=== PATIENT | male | born 1975 | race Caucasian/White ===

== ENCOUNTER 2020-01-18 14:47 | Inpatient (IN) | payer MEDICAID, SELFPAY ==
[2020-01-18] VITALS (11 sets, daily range): BP systolic 160–181; BP diastolic 85–118; PULSE 98–135; RESP 16–24; TEMP 37.1–37.3; O2SAT 91–96; BMI 21.7
--- NOTE | 2020-01-18 15:32 | ED_ITS ---
Documented by User: TREMAINE Crockett 01/19/20 17:45 HPI - Extremity Problem General: Chief complaint: Extremity Problem,Nontraumatic Stated complaint: legs stopped working Time Seen by Provider: 01/18/20 15:29 History of Present Illness: HPI Narrative: Patient is a 44-year-old male comes to the ED with alcohol withdrawal symptoms. Patient states that he typically drinks 30 pack of beers a day. He says in the past couple days he is trying to cut back and has been averaging about 7-10 beers a day. He is now having symptoms of withdrawal and is having tremors in his right and then he has leg pains. He also has been feeling nauseous and has vomited over the past couple days multiple times. Patient says before he came in today he drank about 4 beers. Associated symptoms: Deny chest pain, fever(s) or rash Review of Systems Const: Denies: fever(s), chills or fatigue Eyes: Denies: change in vision or eye discomfort ENMT: Denies: throat pain, odynophagia, nasal discharge or nasal congestion Card: Denies: chest pain, palpitations, edema, swelling of feet/ankles, dyspnea on exertion or orthopnea Resp: Denies: dyspnea, productive cough or non-productive cough GI: Reports: nausea and vomiting; Denies: abdominal pain, diarrhea, constipation or hematochezia : Denies: flank pain, difficulty urinating, dysuria or hematuria Musc: Reports: extremity pain (R and L lower extremities); Denies: neck pain, back pain or extremity swelling Skin/Breast: Denies: rash or new lesions Neuro: Reports: involuntary movements (Right arm tremors); Denies: headache(s), numbness in extremities or weakness in extremities Psych: Reports: other (Alcohol withdrawals.) PFS ED PFSH: Medical History Alcohol abuse Smoker Surgical History (Updated 01/18/20 @ 21:41 by Kandace Corona MD) H/O hand surgery Family History (Updated 01/18/20 @ 21:41 by Kadnace Corona MD) Denies family history of Diabetes Lung disease Hypertension Social History (Updated 01/18/20 @ 21:42 by Kandace Corona MD) Smoking and tobacco status: heavy tobacco smoker cigarettes [ Other cigarette details: 2 packs/day for last 30 years ] Alcohol intake: current Alcohol type: beer Household members: family Housing: House Physical Exam Const: COMMON NORMALS: patient oriented x3 HENMT: COMMON NORMALS: normocephalic HEAD & SCALP: normocephalic MOUTH: Normal oral and palatal mucosa present THROAT: posterior oropharynx normal and uvula midline Eye: COMMON NORMALS: Equal, round and reactive pupils present CONJUNCTIVA: Yes conjunctival abnormal positive bilateral conjunctival icterus PUPIL: Yes Equal, round and reactive pupils present Neck/C-Spine: COMMON NORMALS: supple GENERAL: Yes normal visual inspection Resp: COMMON NORMALS: normal respiratory effort, No retractions, No use of accessory muscles and clear to auscultation bilaterally EFFORT & INSPECTION: Yes able to speak in complete sentences AUSCULTATION: clear to auscultation bilaterally Cardio: COMMON NORMALS: regular rhythm, S1 normal heart sound present, S2 normal heart sound present, No gallops present (Cardio), No clicks present (Cardio), No murmurs present (Cardio) and Peripheral pulses 2+ throughout RATE: tachycardic RHYTHM: regular rhythm HEART SOUNDS: S1 normal heart sound present and S2 normal heart sound present PERIPHERAL PULSES: Peripheral pulses 2+ throughout GI: COMMON NORMALS: Normal to inspection, nondistended, normoactive bowel sounds present, Soft to palpation, non-tender and no masses PALPATION: Yes Soft to palpation : COMMON NORMALS: Yes no CVA tenderness BLADDER/KIDNEY EXAM: Yes no CVA tenderness Back/Pelvis: COMMON NORMALS: no CVA tenderness Extremity: COMMON NORMALS: no pedal edema GENERAL: Yes normal exam except as noted RIGHT UPPER EXTREMITY: Yes lower arm Right lower arm: Yes inspection (Patient has a tremor in right arm causing shaking of right hand.) Neuro: COMMON NORMALS: patient oriented x3 and moves all extremities Skin: COMMON NORMALS: no rashes or lesions noted GENERAL SKIN EXAM: no rashes or lesions noted and dry skin Course Vital Signs: Vital signs: Vital Signs Temperature 98.2 F 01/19/20 08:45 Pulse Rate 66 01/19/20 16:00 Respiratory Rate 18 01/19/20 16:00 Blood Pressure 139/96 01/19/20 16:00 Pulse Oximetry 94 01/19/20 16:00 MDM - Extremity (Nontraumatic) Lab Data: Attestation: I reviewed the patient's lab results. Labs: Lab Results 01/18/20 01/18/20 01/18/20 Range/Units 15:38 15:38 15:38 WBC 9.5 (4.0-10.0) 10^3/ uL RBC 4.22 (4.1-5.3) 10^6/u L Hgb 13.5 (11.7-16.6) g/dL Hct 40.4 L (42.0-52.0) % MCV 95.7 H (80-94) fL MCH 32.0 (28.0-34.0) pg MCHC 33.4 (30.0-36.0) g/dL RDW 12.9 (12.1-15.1) % Plt Count 40 L (130-400) 10^3/c mm MPV 10.0 (7.4-10.4) fL Neut % (Auto) 81.2 % Lymph % (Auto) 10.7 % [place] % (Auto) 7.1 % Eos % (Auto) 0.0 % Baso % (Auto) 0.4 % Neut # (Auto) 7.7 (1.8-7.7) 10^3/u L Lymph # (Auto) 1.0 (0.8-4.8) 10^3/u L [place] # (Auto) 0.7 (0.2-0.9) 10^3/u L Eos # (Auto) 0.0 (0.0-0.8) 10^3/u L Baso # (Auto) 0.0 (0.0-0.1) 10^3/u L Nucleated RBC % (a uto) 0 % Nucleated RBCs # 0.0 /100WBC Sodium 130 L (136-145) mmol/L Potassium 3.7 (3.5-5.1) mmol/L Chloride 88 L (98-107) mmol/L Carbon Dioxide 20 L (22-29) mmol/L Anion Gap 25.7 H (5-19) BUN 4 L (6-20) mg/dL Creatinine 0.5 L (0.7-1.2) mg/dL GFR Calculation 180.6 H (90-130) mL/min Glucose 99 (65-115) mg/dL Calculated Osmolal ity 266 L (285-295) mOsm/k g Calcium 9.0 (8.5-10.5) mg/dL Total Bilirubin 0.9 (0.15-1.2) mg/dL AST 69 H (0-40) U/L ALT 49 H (0-41) U/L Alkaline Phosphata se 74 (40-130) IU/L Total Protein 7.1 (6.6-8.7) g/dL Albumin 4.0 (3.5-5.2) g/dL Globulin 3.1 (1.3-4.6) g/dL Ethyl Alcohol 83 H (0-10) mg/dL Discharge Plan Discharge Admit Provider: Kandace Corona Discharge Date/Time: 01/18/20 21:52 Coding Level of Care Code ED Shipping Point Inspector for [facility] Fwd Exam Comprehensive Documented by User: OANH Ellison 01/18/20 18:34 HPI - Extremity Problem General: Chief complaint: Extremity Problem,Nontraumatic Stated complaint: legs stopped working Time Seen by Provider: 01/18/20 15:29 PFSH ED PFSH: Medical History Alcohol abuse Smoker Surgical History (Updated 01/18/20 @ 21:41 by Kandace Corona MD) H/O hand surgery Family History (Updated 01/18/20 @ 21:41 by Kandace Corona MD) Denies family history of Diabetes Lung disease Hypertension Social History (Updated 01/18/20 @ 21:42 by Kandace Corona MD) Smoking and tobacco status: heavy tobacco smoker cigarettes [ Other cigarette details: 2 packs/day for last 30 years ] Alcohol intake: current Alcohol type: beer Household members: family Housing: House Course Vital Signs: Vital signs: Vital Signs Temperature 98.2 F 01/19/20 08:45 Pulse Rate 66 01/19/20 16:00 Respiratory Rate 18 01/19/20 16:00 Blood Pressure 139/96 01/19/20 16:00 Pulse Oximetry 94 01/19/20 16:00 MDM - Extremity (Nontraumatic) MDM Narrative: Medical decision making narrative: Discussed case with Dr. Chino at 1830 ordered more Ativan fluids evaluate patient for possible admission ICU Lab Data: Labs: Lab Results 01/18/20 01/18/20 01/18/20 Range/Units 15:38 15:38 15:38 WBC 9.5 (4.0-10.0) 10^3/ uL RBC 4.22 (4.1-5.3) 10^6/u L Hgb 13.5 (11.7-16.6) g/dL Hct 40.4 L (42.0-52.0) % MCV 95.7 H (80-94) fL MCH 32.0 (28.0-34.0) pg MCHC 33.4 (30.0-36.0) g/dL RDW 12.9 (12.1-15.1) % Plt Count 40 L (130-400) 10^3/c mm MPV 10.0 (7.4-10.4) fL Neut % (Auto) 81.2 % Lymph % (Auto) 10.7 % [place] % (Auto) 7.1 % Eos % (Auto) 0.0 % Baso % (Auto) 0.4 % Neut # (Auto) 7.7 (1.8-7.7) 10^3/u L Lymph # (Auto) 1.0 (0.8-4.8) 10^3/u L [place] # (Auto) 0.7 (0.2-0.9) 10^3/u L Eos # (Auto) 0.0 (0.0-0.8) 10^3/u L Baso # (Auto) 0.0 (0.0-0.1) 10^3/u L Nucleated RBC % (a uto) 0 % Nucleated RBCs # 0.0 /100WBC Sodium 130 L (136-145) mmol/L Potassium 3.7 (3.5-5.1) mmol/L Chloride 88 L (98-107) mmol/L Carbon Dioxide 20 L (22-29) mmol/L Anion Gap 25.7 H (5-19) BUN 4 L (6-20) mg/dL Creatinine 0.5 L (0.7-1.2) mg/dL GFR Calculation 180.6 H (90-130) mL/min Glucose 99 (65-115) mg/dL Calculated Osmolal ity 266 L (285-295) mOsm/k g Calcium 9.0 (8.5-10.5) mg/dL Total Bilirubin 0.9 (0.15-1.2) mg/dL AST 69 H (0-40) U/L ALT 49 H (0-41) U/L Alkaline Phosphata se 74 (40-130) IU/L Total Protein 7.1 (6.6-8.7) g/dL Albumin 4.0 (3.5-5.2) g/dL Globulin 3.1 (1.3-4.6) g/dL Ethyl Alcohol 83 H (0-10) mg/dL Discharge Plan Discharge Admit Provider: Kandace Corona Discharge Date/Time: 01/18/20 21:52 Coding Level of Care Code ED Shipping Point Inspector for g Fwd Exam Comprehensive
[2020-01-18 15:45] LABS: Basophils % 0.4 %; Hematocrit 40.4 % (42.0-52.0); Hemoglobin 13.5 g/dL (11.7-16.6); Lymphocytes % 10.7 %; Mean Corpuscular HGB Conc 33.4 g/dL (30.0-36.0); Mean Corpuscular Volume 95.7 fL (80-94); Monocytes # 0.7 10^3/uL (0.2-0.9); Monocytes % 7.1 %; Neutrophils # 7.7 10^3/uL (1.8-7.7); Neutrophils % 81.2 %; Nucleated Red Blood Cells % 0 %; Platelet Count 40 10^3/cmm (130-400); Red Blood Count 4.22 10^6/uL (4.1-5.3); Red Cell Distribution Width 12.9 % (12.1-15.1); White Blood Count 9.5 10^3/uL (4.0-10.0)
[2020-01-18 16:04] LABS: Alanine Aminotransferase 49 U/L (0-41); Alkaline Phosphatase 74 IU/L (40-130); Anion Gap 25.7 (5-19); Aspartate Amino Transferase 69 U/L (0-40); Blood Urea Nitrogen 4 mg/dL (6-20); Carbon Dioxide 20 mmol/L (22-29); Chloride 88 mmol/L (98-107); Globulin 3.1 g/dL (1.3-4.6); Glomerular Filtration Rate 180.6 mL/min (90-130); Glucose 99 mg/dL (65-115); Osmolality Calculated 266 mOsm/kg (285-295); Potassium 3.7 mmol/L (3.5-5.1); Sodium 130 mmol/L (136-145); Total Bilirubin 0.9 mg/dL (0.15-1.2); Total Protein 7.1 g/dL (6.6-8.7)
[2020-01-18] MEDS: sodium chloride 0.9% 1,000 ML 999 ML IV ×2 (16:17→19:39)
[2020-01-18] MEDS: LORazepam 2 mg/mL INJ 1 mL IVP ×4 (16:18→23:43)
[2020-01-18 16:35] LABS: Alcohol Level 83 mg/dL (0-10)
[2020-01-18] MEDS: folic acid 1 MG, multivitamin inj 10 ML, thiamine 100 MG in sodium chloride 0.9% 1,000 ML 252.8 MG IV (17:13)
[2020-01-18] MEDS: ondansetron 2 mg/ML SDV 2 mL 4 MG IVP (18:45)
--- NOTE | 2020-01-18 20:12 | P.HP_ITS ---
Providers/Chief Complaint Chief Complaint: legs stopped working History of Present Illness Sherif Rangel is a 44 year old male with no significant past medical history brought in by EMS for chief complaint of coarse tremors. Patient lives with his family, his called EMS because of his extreme coarse tremors. Patient is stating that he drinks 30 beers every day, smokes 2 packs/day, his last drink was yesterday, he has recently cut down his beer intake to 15 cans a day. He is endorsing alcohol withdrawal in the past as well without requiring intubation. Is denying any [place], stroke, heart failure, diabetes or hypertension history. Patient is a poor historian. Diagnostics in the ER revealed hyponatremia, hypokalemia, I requested CT head after noticing right-sided mouth deviation, CT head did not show any acute pathological process Lactic acid is pending He has received 6 mg of Ativan in the ER Review of Systems Const: Denies: fever(s) or chills Eyes: Denies: change in vision ENMT: Denies: throat pain Card: Denies: chest pain Resp: Denies: dyspnea GI: Denies: abdominal pain : Denies: flank pain Musc: Denies: neck pain Skin/Breast: Denies: rash Neuro: Reports: headache(s), lack of coordination and dizziness Psych: Reports: anxiety Endo: Denies: polyuria [place]/Lymph: Denies: easy bruising All/Imm: Denies: urticaria Medications/Allergies Home Medications Medication Instructions Recorded Confirmed Last Taken Type acetaminophen [Tylenol] 325 mg PO QID PRN 01/18/20 01/18/20 01/18/20 History Allergies Allergy/AdvReac Type Severity Reaction Status Date / Time Penicillins Allergy Unknown Verified 01/18/20 15:27 PFSH Acute PFSH: Medical History Alcohol abuse Smoker Surgical History (Updated 01/18/20 @ 21:41 by Kandace Corona MD) H/O hand surgery Family History (Updated 01/18/20 @ 21:41 by Kandace Corona MD) Denies family history of Diabetes Lung disease Hypertension Social History (Updated 01/18/20 @ 21:42 by Kandace Corona MD) Smoking and tobacco status: heavy tobacco smoker cigarettes [ Other cigarette details: 2 packs/day for last 30 years ] Alcohol intake: current Alcohol type: beer Alcohol use comment: cans every day Substance/Drug Use: never Household members: family Housing: House Vitals/I&O/Wt Last Vital Signs Temp 98.7 F 01/18/20 15:23 Pulse 112 H 01/18/20 19:37 Resp 16 01/18/20 19:37 BP 167/105 01/18/20 19:37 Pulse Ox 96 01/18/20 19:37 01/18/20 01/18/20 01/18/20 06:59 14:59 22:59 Intake Total 1000 / 1000 Balance 1000 / 1000 Weight last 48 hrs Weight 72.575 kg Physical Exam Narrative: EXAM NARRATIVE: Head to toe examination Patient is able to follow my commands He is awake alert oriented x3, GCS 15, noticed right sided mouth deviation without anyother signs of facial asymmetry Unkempt appearance S1, S2 sinus tachycardia no heart failure murmur Abdomen soft nontender nondistended normal bowel sound present Lungs are clear to auscultation without adventitious sounds Appears to have anxious mood EOMI, his pupils are symmetrical and reacting to light bilaterally Good strength of upper and lower extremities 4/5 on flexion and extension No sign of ischemia gangrene ulcer of lower extremity Pertinent negative No respiratory distress No confabulation or delirium Data : 01/18/20 15:38 01/18/20 15:38 A&P Assessment and plan (1) Delirium tremens: Status: Acute (2) Hyponatremia: Status: Acute (3) Hypokalemia: Status: Acute (4) Smoker: Status: Acute (5) Alcohol abuse: Status: Acute Additional A&P Information Delirium tremens Admit to ICU, high risk for intubation Continue CIWA protocol So far has received 6 mg of Ativan We will check phosphorus and magnesium level Last alcoholic drink was yesterday, current alcohol level 84 Monitor for refeeding syndrome, Hyponatremia due to alcohol abuse We will start liberal salt intake once he is able to tolerate diet Hypokalemia: I will give him p.o. potassium 40 mEq for now we will check mag nesium level High anion gap metabolic acidosis due to alcohol ketoacidosis, lactic acid pending Hypotension due to autonomic instability due to alcohol abuse Would use AV isabella blocking agent if systolic blood pressure above 200 or diastolic above 100mmhg Currently monitor and use benzodiazepines for now DVT prophylaxis: Lovenox N.p.o. Full code Attestations Medical Necessity Statement*: Currently needs ICU because of delirium tremens, anticipating stay in the hospital course more than 2 midnights, high risk for intubation Time Spent in Patient Care: 50 Coding Level of Care Code Acute Dialysis Chief Equipment Technician for [facility] Fwd Diagnoses Delirium tremens F10.231 Hyponatremia E87.1 Hypokalemia E87.6 Smoker F17.200 Alcohol abuse F10.10
--- NOTE | 2020-01-18 20:23 | CTR_ITS ---
PROCEDURE INFORMATION: Exam: CT Head Without Contrast Exam date and time: 01/18/2020 8:24 PM Age: 44 years old Clinical indication: Other: Dt's; Patient HX: PT kept falling asleep TECHNIQUE: Imaging protocol: Computed tomography of the head without contrast. Radiation optimization: All CT scans at this facility use at least one of these dose optimization techniques: automated exposure control; mA and/or kV adjustment per patient size (includes targeted exams where dose is matched to clinical indication); or iterative reconstruction. COMPARISON: No relevant prior studies available. RADIATION DOSE METRICS: Total DLP: 651.41 mGy-cm FINDINGS: Brain: Normal. No hemorrhage. Unremarkable white matter. No mass effect. Ventricles: Normal. No ventriculomegaly. Bones/joints: Unremarkable. No acute fracture. Sinuses: Bilateral maxillary sinusitis, left more involved than right. Mastoid air cells: Visualized mastoid air cells are well aerated. Soft tissues: Unremarkable. CT/CT head wo con* [id number] IMPRESSION: 1. Bilateral maxillary sinusitis. 2. No visible evidence of acute intracranial pathologic process. Radiation Dose CTDIVOL = (mGy): DLP = 651.41 (mGy-cm)
[2020-01-18] MEDS: LORazepam 2 mg Tablet PO (22:26)
[2020-01-18] MEDS: magnesium oxide 400 mg tablet PO (22:26)
[2020-01-18 22:38] LABS: Basophils % 0.2 %; Eosinophils % 0.2 %; Hematocrit 37.4 % (42.0-52.0); Hemoglobin 12.4 g/dL (11.7-16.6); Lymphocytes # 0.8 10^3/uL (0.8-4.8); Lymphocytes % 13.7 %; Mean Corpuscular HGB Conc 33.2 g/dL (30.0-36.0); Mean Corpuscular Hemoglobin 31.8 pg (28.0-34.0); Mean Corpuscular Volume 95.9 fL (80-94); Mean Platelet Volume 11.4 fL (7.4-10.4); Monocytes # 0.4 10^3/uL (0.2-0.9); Monocytes % 5.8 %; Neutrophils # 4.8 10^3/uL (1.8-7.7); Neutrophils % 79.4 %; Nucleated Red Blood Cells % 0 %; Platelet Count 34 10^3/cmm (130-400); Red Cell Distribution Width 12.8 % (12.1-15.1)
[2020-01-18 22:51] LABS: Lactic Sepsis W/Reflex 0.9 mmol/L (0.5-2.2)
[2020-01-18 22:52] LABS: Alanine Aminotransferase 41 U/L (0-41); Albumin Level 3.6 g/dL (3.5-5.2); Alkaline Phosphatase 63 IU/L (40-130); Anion Gap 16.7 (5-19); Aspartate Amino Transferase 64 U/L (0-40); Blood Urea Nitrogen 4 mg/dL (6-20); Calcium 8.4 mg/dL (8.5-10.5); Carbon Dioxide 24 mmol/L (22-29); Chloride 97 mmol/L (98-107); Globulin 2.6 g/dL (1.3-4.6); Glomerular Filtration Rate 233.7 mL/min (90-130); Glucose 88 mg/dL (65-115); Magnesium 1.9 mg/dL (1.7-2.3); Osmolality Calculated 273 mOsm/kg (285-295); Phosphorus 1.6 mg/dL (2.5-4.5); Potassium 3.7 mmol/L (3.5-5.1); Sodium 134 mmol/L (136-145); Total Protein 6.2 g/dL (6.6-8.7)
[2020-01-19] VITALS (48 sets, daily range): BP systolic 133–185; BP diastolic 94–140; PULSE 64–113; RESP 14–26; TEMP 36.8–37; O2SAT 70–98
[2020-01-19] MEDS: LORazepam 2 mg/mL INJ 1 mL IVP ×9 (01:27→21:45)
[2020-01-19] MEDS: labetalol 5 mg/mL SDV 20mL IVP (02:26)
[2020-01-19] MEDS: sodium chloride 0.9% 1,000 ML 75 ML IV ×2 (02:26→15:44)
[2020-01-19] MEDS: dexmedetomidine 400 MCG in sodium chloride 0.9% (100 ml) 100 ML IV ×2 (04:02→12:40)
[2020-01-19] MEDS: folic acid 1 mg Tablet PO (12:04)
[2020-01-19] MEDS: multivitamin therapeutic Tablet 1 TAB PO (12:04)
[2020-01-19] MEDS: thiamine 100 mg Tablet PO (12:04)
[2020-01-19] MEDS: enoxaparin 40 mg/0.4 mL Syringe SUBCUT (12:04)
--- NOTE | 2020-01-19 12:34 | P.PN_ITS ---
Subjective Subjective: Interval history: This morning patient is alert, does not follow commands at time, does not know where he is, does not answer questions appropriately, remains quite agitated, during my examination he tried to get up out of bed, urinated on the hospital bed, and stooled on the hospital bed Overnight, no fevers, has hypertensive episodes, does not require any oxygen, currently on a Precedex drip, Vitals/I&O/Wt Last Vital Signs Temp 98.2 F 01/19/20 08:45 Pulse 70 01/19/20 12:00 Resp 18 01/19/20 12:00 BP 148/117 01/19/20 12:00 Pulse Ox 95 01/19/20 12:00 01/18/20 01/19/20 01/19/20 22:59 06:59 14:59 Intake Total 1999 240 / 2240 1011.2 / 1011.2 Output Total 750 / 750 600 / 600 Balance 1999 -510 / 1490 411.2 / 411.2 Weight last 48 hrs Weight 72.575 kg Physical Exam Const: COMMON NORMALS: no acute distress GENERAL APPEARANCE: disheveled and odor of alcohol detected ORIENTATION/CONSCIOUSNESS: Yes awake and Yes confused; not oriented to person, not oriented to place and not oriented to time Neck/C-Spine: COMMON NORMALS: no JVD Resp: COMMON NORMALS: normal respiratory effort, No retractions, No use of accessory muscles and clear to auscultation bilaterally AUSCULTATION: clear to auscultation bilaterally Cardio: COMMON NORMALS: no JVD, regular rate, regular rhythm, S1 normal heart sound present and S2 normal heart sound present RATE: regular rate RHYTHM: regular rhythm HEART SOUNDS: S1 normal heart sound present and S2 normal heart sound present GI: COMMON NORMALS: Normal to inspection, nondistended, normoactive bowel sounds present, Soft to palpation, non-tender, No hepatosplenomegaly present, no masses and no bruits PALPATION: Yes Soft to palpation and Yes No hepatosplenomegaly present Neuro: SENSORIUM/ORIENTATION: No oriented to person, No oriented to place and No oriented to time OTHER: Does not follow neurologic exam Data : 01/18/20 22:30 01/18/20 22:30 A&P Assessment and plan (1) Delirium tremens: Status: Acute (2) Hyponatremia: Status: Acute (3) Hypokalemia: Status: Acute (4) Smoker: Status: Acute (5) Alcohol abuse: Status: Acute Additional A&P Information Delirium tremens Admit to ICU, high risk for intubation Continue CIWA protocol Currently on a Precedex drip Last alcoholic drink was yesterday, current alcohol level 84 Monitor for refeeding syndrome, Hyponatremia due to alcohol abuse We will start liberal salt intake once he is able to tolerate diet Hypokalemia: Potassium 3.7 High anion gap metabolic acidosis due to alcohol ketoacidosis, lactic acid pending Hypotension due to autonomic instability due to alcohol abuse Would use AV isabella blocking agent if systolic blood pressure above 200 or diastolic above 100mmhg Currently monitor and use benzodiazepines for now DVT prophylaxis: Lovenox N.p.o. Full code Attestations Medical Necessity Statement*: She requires continued hospitalization due to alcohol withdrawal, delirium tremens Coding Level of Care Code Acute Hospital Clerk for [facility] Diagnoses Delirium tremens F10.231 Hyponatremia E87.1 Hypokalemia E87.6 Smoker F17.200 Alcohol abuse F10.10
[2020-01-19] MEDS: labetalol 5 mg/mL SDV 20mL 20 MG IVP (23:18)
[2020-01-19] MEDS: dexmedetomidine 400 MCG in sodium chloride 0.9% (100 ml) 100 ML 9.4 MCG IV (23:21)
[2020-01-20] VITALS (43 sets, daily range): BP systolic 112–197; BP diastolic 84–120; PULSE 65–118; RESP 16–32; TEMP 37.2; O2SAT 93–98
[2020-01-20] MEDS: LORazepam 2 mg/mL INJ 1 mL IVP ×6 (02:01→23:15)
[2020-01-20] MEDS: LORazepam 2 mg Tablet PO (02:48)
[2020-01-20] MEDS: nicotine 21 mg Patch 1 PATCH TRANSDERMA ×2 (03:09→08:53)
[2020-01-20 03:38] LABS: Basophils % 0.4 %; Eosinophils % 0.1 %; Hemoglobin 13.5 g/dL (11.7-16.6); Lymphocytes % 13.2 %; Mean Corpuscular HGB Conc 32.1 g/dL (30.0-36.0); Mean Corpuscular Hemoglobin 31.9 pg (28.0-34.0); Mean Corpuscular Volume 99.3 fL (80-94); Mean Platelet Volume 11.7 fL (7.4-10.4); Monocytes # 0.7 10^3/uL (0.2-0.9); Monocytes % 9.1 %; Neutrophils # 5.8 10^3/uL (1.8-7.7); Neutrophils % 76.5 %; Nucleated Red Blood Cells % 0 %; Platelet Count 45 10^3/cmm (130-400); Red Blood Count 4.23 10^6/uL (4.1-5.3); Red Cell Distribution Width 12.3 % (12.1-15.1); White Blood Count 7.6 10^3/uL (4.0-10.0)
[2020-01-20] MEDS: OLANZapine 10 mg VIAL IM ×2 (03:49→22:22)
[2020-01-20 03:54] LABS: Alanine Aminotransferase 40 U/L (0-41); Albumin Level 3.7 g/dL (3.5-5.2); Alkaline Phosphatase 75 IU/L (40-130); Anion Gap 23.2 (5-19); Aspartate Amino Transferase 57 U/L (0-40); Blood Urea Nitrogen 7 mg/dL (6-20); Calcium 9.6 mg/dL (8.5-10.5); Carbon Dioxide 20 mmol/L (22-29); Chloride 94 mmol/L (98-107); Globulin 3.6 g/dL (1.3-4.6); Glomerular Filtration Rate 146.4 mL/min (90-130); Glucose 88 mg/dL (65-115); Magnesium 1.9 mg/dL (1.7-2.3); Osmolality Calculated 273 mOsm/kg (285-295); Phosphorus 2.2 mg/dL (2.5-4.5); Potassium 3.2 mmol/L (3.5-5.1); Sodium 134 mmol/L (136-145); Total Protein 7.3 g/dL (6.6-8.7)
[2020-01-20] MEDS: labetalol 5 mg/mL SDV 20mL 20 MG IVP ×2 (05:00→07:31)
[2020-01-20] MEDS: sodium chloride 0.9% 1,000 ML 75 ML IV ×2 (05:02→17:15)
[2020-01-20] MEDS: dexmedetomidine 400 MCG in sodium chloride 0.9% (100 ml) 100 ML 22.6 MCG IV ×2 (05:36→23:15)
--- NOTE | 2020-01-20 07:26 | PC.NURSE ---
Addendum entered by Isabela Kilgore RN 01/20/20 07:30: Labetalol 1 hours and 35 minutes too early. Last dose administered at 0500. Ordered q4 hours PRN. Original Note: BP 197/109. Dr Young notified. Unable to administer PRN dose of Labetalol via computer--35 minutes too soon. Labetalol 20mg IVP NOW order received.
--- NOTE | 2020-01-20 07:37 | XR_ITS ---
WS: [id number] PORTABLE CHEST HISTORY: sob COMPARISON: 09/30/2018 Mid RIGHT lung developing opacification. LEFT lung is clear. No pleural effusion or pneumothorax. Cardiac size: Normal. Mediastinum/Aorta: Normal mediastinum. No osseous abnormality seen. XR/XR chest 1V portable [id number] IMPRESSION: Mid RIGHT lung developing pneumonia.
--- NOTE | 2020-01-20 08:03 | PC.NURSE ---
Dr Will on unit. Aware of pt's BP.
[2020-01-20] MEDS: potassium chloride premix 40 MEQ/100 ML PREMIX 25 MEQ IV (08:51)
[2020-01-20] MEDS: folic acid 1 mg Tablet PO (08:53)
[2020-01-20] MEDS: chlordiazePOXIDE 25 mg Capsule 50 MG PO ×3 (08:53→22:01)
[2020-01-20] MEDS: enoxaparin 40 mg/0.4 mL Syringe SUBCUT (08:54)
[2020-01-20] MEDS: multivitamin therapeutic Tablet 1 TAB PO (08:54)
[2020-01-20] MEDS: thiamine 100 mg Tablet PO (08:54)
--- NOTE | 2020-01-20 09:00 | PC.NURSE ---
Pt awakened extremely agitated and angry. Cursing at this nurse and throwing linens. Pt proceeded to get up out of the bed refusing assistance. Assistance provided regardless as pt is extremely unstable. Pt offered urinal and pt indicated he needed to use it. Pt urinated all over himself and bed before nurse assumed control of urinal. Pt continued expressing anger and displeasure but laid back in the bed and feel asleep. Pt cleaned up and soiled linens removed and replaced.
--- NOTE | 2020-01-20 09:22 | PC.NURSE ---
[facility] administration delay d/t waiting on Dr Will to confirm Lidocaine request.
[2020-01-20] MEDS: lidocaine 1% INJ 20 mL 5 ML IV (09:38)
[2020-01-20] MEDS: dexmedetomidine 400 MCG in sodium chloride 0.9% (100 ml) 100 ML 17 MCG IV (10:16)
--- NOTE | 2020-01-20 10:23 | PC.NURSE ---
Pt experiencing moderate tremors. Ativan administered per order. Pt tolerated well.
--- NOTE | 2020-01-20 10:23 | PC.NURSE ---
Dr Will aware of pt's persistent elevated BP and irregular HR. Stated both are expected and he is not concerned at this time. Encouraged to follow Labetalol PRN dosing, decrease Precedex gtt, schedule Librium instead of PRN, administer Ativan PRN and to closely monitor respirations.
--- NOTE | 2020-01-20 15:59 | P.PN_ITS ---
Subjective Subjective: Interval history: This morning patient wakes up to commands, drowsy, minimal tremor, does have tachycardia, hypertensive episodes, no fevers, no auditory visual hallucinations, no tach hallucinations, according to nursing staff, he is arousable, does answer questions at times, but remains quite somnolent I spoke to patient's this afternoon, she states that patient has been complaining of diarrhea for a few days, no known antibiotic use, no known exposure, no significant medical history, has been drinking alcohol for long period of time, no known history of liver disease, no known history of hematemesis, no known history of esophageal varices Vitals/I&O/Wt Last Vital Signs Temp 98.9 F 01/20/20 07:30 Pulse 85 01/20/20 14:00 Resp 16 01/20/20 14:00 BP 146/104 01/20/20 14:00 Pulse Ox 95 01/20/20 14:00 01/20/20 01/20/20 01/20/20 06:59 14:59 22:59 Intake Total 1174.940 / 3249.507 176.556 / 176.556 Output Total 480 / 480 Balance 1174.940 / 2649.507 -303.444 / -303.444 Physical Exam Const: COMMON NORMALS: no acute distress HENMT: COMMON NORMALS: normocephalic HEAD & SCALP: normocephalic Neck/C-Spine: COMMON NORMALS: no JVD Resp: COMMON NORMALS: normal respiratory effort, No retractions, No use of accessory muscles and clear to auscultation bilaterally AUSCULTATION: clear to auscultation bilaterally Cardio: COMMON NORMALS: no JVD, regular rate, regular rhythm, S1 normal heart sound present and S2 normal heart sound present RATE: regular rate RHYTHM: regular rhythm HEART SOUNDS: S1 normal heart sound present and S2 normal heart sound present GI: COMMON NORMALS: Normal to inspection, nondistended, normoactive bowel sounds present, Soft to palpation, non-tender, No hepatosplenomegaly present, no masses and no bruits PALPATION: Yes Soft to palpation and Yes No hepatosplenomegaly present Extremity: COMMON NORMALS: capillary refill normal, no clubbing, cyanosis or edema, no calf tenderness and no pedal edema Data : 01/20/20 03:00 01/20/20 03:00 Micro: Microbiology 01/19/20 12:10 C.difficile Toxin B Gene (PCR) - Final Stool A&P Assessment and plan (1) Alcohol dependence with withdrawal: -Currently still within the 72 to 96-hour window -On Precedex drip -On scheduled Librium -Currently no withdrawal seizures, monitor respiratory status closely -Low threshold for intubation Status: Acute (2) C. difficile colitis: -Continue oral vancomycin -Order KUB Status: Acute (3) Aspiration pneumonia: -Chest x-ray shows evidence of aspiration pneumonia, has penicillin allergy -Start Pradaxa Status: Acute (4) Hyponatremia: Status: Acute (5) Hypokalemia: Status: Acute (6) Alcohol abuse: -We will order HIV, hepatitis panel, liver ultrasound, INR, repeat electrolytes Status: Acute (7) Thrombocytopenia: Status: Acute Attestations Medical Necessity Statement*: Patient requires hospitalization for alcohol withdrawal, C. difficile colitis, aspiration pneumonia Coding Level of Care Code Acute Monogram Machine Operator for [facility] Diagnoses Alcohol dependence with withdrawal F10.239 C. difficile colitis A04.72 Aspiration pneumonia J69.0 Hyponatremia E87.1 Hypokalemia E87.6 Alcohol abuse F10.10 Thrombocytopenia D69.6
--- NOTE | 2020-01-20 16:04 | XRR_ITS ---
PROCEDURE INFORMATION: Exam: XR Abdomen, 1 View Exam date and time: 01/20/2020 7:20 PM Age: 44 years old Clinical indication: Condition or disease; Other: Cdiff colitis TECHNIQUE: Imaging protocol: XR of the abdomen. Views: Frontal supine view of the abdomen. 1 View. COMPARISON: No relevant prior studies available. FINDINGS: Gastrointestinal tract: Bowel gas pattern is nonspecific. No mass effect upon the bowel loops. Distal rectal gas. Scattered loops of air filled small bowel none of which are dilated. Moderate amount stool throughout the large bowel. Suggestion of thickening of the haustral of the transverse colon. Consider CT. Bones/joints: No acute process within the osseous structures of the spine or pelvis. Soft tissues: No appreciable calcifications XR/XR KUB portable [id number] IMPRESSION: 1. Bowel gas pattern is nonspecific. 2. Moderate amount stool throughout the large bowel. 3. Suggestion of thickening of the haustral of the transverse colon. Consider CT.
[2020-01-20 17:13] LABS: INR 0.88 (0.8-1.2)
--- NOTE | 2020-01-20 18:28 | PC.NURSE ---
Called pharmacy for replacement Vanc.
[2020-01-20 23:12] LABS: HIV 1 & 2 Antibody Non-Reactive (Non-Reactiv); HIV 1 & 2 Antigen Non-Reactive (Non-Reactiv)
[2020-01-21] VITALS (48 sets, daily range): BP systolic 90–209; BP diastolic 53–145; PULSE 64–102; RESP 12–28; TEMP 36.3–37.1; O2SAT 95–100
[2020-01-21 00:44] LABS: Hepatitis A Antibody IgM Non-Reactive (Nonreactive); Hepatitis B Core AB, Total Non-Reactive (Nonreactive); Hepatitis B Surface AB 3.5 (0-8.5); Hepatitis B Surface Antigen Non-Reactive (Nonreactive); Hepatitis C Virus Antibody Non-Reactive (Nonreactive)
[2020-01-21] MEDS: LORazepam 2 mg/mL INJ 1 mL IVP ×6 (02:21→21:51)
[2020-01-21] MEDS: dexmedetomidine 400 MCG in sodium chloride 0.9% (100 ml) 100 ML 18.9 MCG IV (03:37)
[2020-01-21 04:41] LABS: Basophils # 0.1 10^3/uL (0.0-0.1); Basophils % 0.7 %; Eosinophils % 0.4 %; Hematocrit 41.1 % (42.0-52.0); Hemoglobin 13.5 g/dL (11.7-16.6); Lymphocytes # 1.6 10^3/uL (0.8-4.8); Lymphocytes % 20.9 %; Mean Corpuscular HGB Conc 32.8 g/dL (30.0-36.0); Mean Corpuscular Hemoglobin 32.2 pg (28.0-34.0); Mean Corpuscular Volume 98.1 fL (80-94); Mean Platelet Volume 10.7 fL (7.4-10.4); Monocytes # 1.3 10^3/uL (0.2-0.9); Monocytes % 17.8 %; Neutrophils # 4.4 10^3/uL (1.8-7.7); Neutrophils % 59.4 %; Nucleated Red Blood Cells % 0 %; Platelet Count 69 10^3/cmm (130-400); Red Blood Count 4.19 10^6/uL (4.1-5.3); Red Cell Distribution Width 12.3 % (12.1-15.1); White Blood Count 7.4 10^3/uL (4.0-10.0)
[2020-01-21 04:58] LABS: Alanine Aminotransferase 29 U/L (0-41); Albumin Level 3.5 g/dL (3.5-5.2); Alkaline Phosphatase 74 IU/L (40-130); Anion Gap 23.9 (5-19); Aspartate Amino Transferase 39 U/L (0-40); Blood Urea Nitrogen 7 mg/dL (6-20); Calcium 8.7 mg/dL (8.5-10.5); Carbon Dioxide 17 mmol/L (22-29); Chloride 98 mmol/L (98-107); Globulin 3.2 g/dL (1.3-4.6); Glomerular Filtration Rate 233.7 mL/min (90-130); Glucose 97 mg/dL (65-115); Magnesium 2.1 mg/dL (1.7-2.3); Osmolality Calculated 278 mOsm/kg (285-295); Phosphorus 2.3 mg/dL (2.5-4.5); Sodium 136 mmol/L (136-145); Total Bilirubin 0.8 mg/dL (0.15-1.2); Total Protein 6.7 g/dL (6.6-8.7)
[2020-01-21 05:05] LABS: Potassium 2.9 mmol/L (3.5-5.1)
[2020-01-21] MEDS: potassium chloride premix 40 MEQ/100 ML PREMIX 25 MEQ IV ×2 (05:48→07:49)
[2020-01-21] MEDS: lidocaine 1% INJ 20 mL 5 ML IV (05:49)
[2020-01-21] MEDS: sodium chloride 0.9% 1,000 ML 75 ML IV ×2 (07:46→22:50)
[2020-01-21] MEDS: multivitamin therapeutic Tablet 1 TAB PO (07:47)
[2020-01-21] MEDS: folic acid 1 mg Tablet PO (07:47)
[2020-01-21] MEDS: chlordiazePOXIDE 25 mg Capsule 50 MG PO ×3 (07:47→19:33)
[2020-01-21] MEDS: thiamine 100 mg Tablet PO (07:47)
[2020-01-21] MEDS: nicotine 21 mg Patch 1 PATCH TRANSDERMA (07:47)
[2020-01-21] MEDS: labetalol 5 mg/mL SDV 20mL 20 MG IVP ×2 (08:46→12:25)
[2020-01-21] MEDS: dexmedetomidine 400 MCG in sodium chloride 0.9% (100 ml) 100 ML 15.1 MCG IV (09:22)
--- NOTE | 2020-01-21 09:28 | CT_ITS ---
WS: [id number] CT ABDOMEN AND PELVIS NONCONTRAST HISTORY: c diff, abdominal distention TECHNIQUE: Imaging performed through the abdomen and pelvis. Coronal and sagittal reformats are submi tted. All CT scans at use at least one of these dose optimization techniques: automated exposure control; mA and/or kV adjustment per patient size (includes targeted exams where d ose is matched to clinical indication); or iterative reconstruction. DLP: 620.02 mGy.cm COMPARISON: 06/16/2008 Quality of this examination is limited without IV contrast and motion artifact. Lower thorax: Interstitial thickening with scattered patchy ill-defined opacifications at the lung ba ses dependent changes also present. Liver: Normal size liver with diffuse hepatic steatosis. No bile duct dilatation. Gallbladder: Mildly contracted. Pancreas: Normal. Spleen: Normal. Adrenal glands: Normal. Right kidney: Mild perinephric stranding around the RIGHT kidney with no obstruction. Left kidney: Mild perinephric stranding with no obstruction. A few scattered calcifications with no aneurysm. No free fluid, intraperitoneal air or significant lymphadenopathy. GI tract: No GI tract obstruction. The appendix is normal. There is no significant wall thickening or thumbprinting or mucosal edema. No obstruction. There are a few scattered sigmoid diverticula withou t diverticulitis. Abdominal wall: Fat-containing umbilical hernia. Pelvis: Normal. Osseous structures: Unremarkable. CT/CT abdomen pelvis wo con [id number] IMPRESSION: 1. No ascites or GI tract obstruction or significant colonic mucosal thickenin g. 2. Hepatic steatosis. 3. Study is degraded by breathing motion artifact. 4. Bilateral patchy ill-defined opacifications at the lung bases. Correlate fo r possible pneumonia. 5. Mild bilateral perinephric stranding. Evaluate for possible urinary tract i nfection. No obstruction is evident.
[2020-01-21] MEDS: hyDRALAzine 20 mg/mL INJ 1 mL 10 MG IVP ×2 (10:04→13:13)
--- NOTE | 2020-01-21 10:33 | PC.NURSE ---
PATIENT WAS RESTING WELL UNTIL THE URGE TO VOID CAME. HE WOULD NOT VOICE THAT HE NEEDED TO VOID HE JUST KICKED AT SITTER AND MYSELF WANTING TO GET UP. FINALLY HE SAID HE HAD TO VOID AND WE GAVE HIM THE URINAL, AND HELD IT FOR HIM. 900 MLS. COLLECTED. DIFFICULT TO TAKE PO MEDS, SOME COUGHING AFTER WATER BUT ABLE TO CLEAR . CT SCAN PLANNED BUT BP ELEVATED IN 3 LOCATIONS. LABETOLOL DID NOT EFFECT IT. CALLED MAMOOD AND HYDRALIZINE GIVEN WITH RELATIVE IMPROVEMENT. CLONIDINE AND METOPROLOL SCHEDUALLED FOR 1800.
--- NOTE | 2020-01-21 11:03 | PM.PN ---
Subjective Subjective: Interval history: This morning patient continues to be quite somnolent, overnight had episodes of agitation, requiring additional doses of Ativan, does open his eyes when called upon, did start swearing when I pressed on his abdomen, abdomen a bit distended, remains afebrile, good urine output, on room air, has had hypertensive episodes Vitals/I&O/Wt Last Vital Signs Temp 98.7 F 01/21/20 08:00 Pulse 81 01/21/20 10:00 Resp 16 01/21/20 10:00 BP 146/95 01/21/20 10:00 Pulse Ox 96 01/21/20 10:00 01/20/20 01/21/20 01/21/20 22:59 06:59 14:59 Intake Total 1155.760 / 1332.316 130.307 / 8818.652 4295.417 / 1354.417 Output Total 800 / 1280 900 / 900 Balance 355.760 / 52.316 130.307 / 182.623 454.417 / 454.417 Physical Exam Const: COMMON NORMALS: no acute distress GENERAL APPEARANCE: disheveled ORIENTATION/CONSCIOUSNESS: Yes awake and Yes confused; not oriented to person, not oriented to place and not oriented to time HENMT: COMMON NORMALS: normocephalic HEAD & SCALP: normocephalic Neck/C-Spine: COMMON NORMALS: no JVD Resp: COMMON NORMALS: normal respiratory effort, No retractions, No use of accessory muscles and clear to auscultation bilaterally AUSCULTATION: clear to auscultation bilaterally Cardio: COMMON NORMALS: no JVD, regular rate, regular rhythm, S1 normal heart sound present and S2 normal heart sound present RATE: regular rate RHYTHM: regular rhythm HEART SOUNDS: S1 normal heart sound present and S2 normal heart sound present GI: COMMON NORMALS: Soft to palpation, non-tender, No hepatosplenomegaly present, no masses and no bruits INSPECTION: Yes abdominal distension AUSCULTATION: Yes Hypoactive bowel sounds present PALPATION: Yes Soft to palpation, Yes Tenderness to palpation present (GI), No Guarding due to palpation present (GI), No Rigid due to palpation and Yes No hepatosplenomegaly present Extremity: COMMON NORMALS: capillary refill normal, no clubbing, cyanosis or edema, no calf tenderness and no pedal edema Neuro: SENSORIUM/ORIENTATION: No oriented to person, No oriented to place and No oriented to time OTHER: Does not follow neurologic exam Data : 01/21/20 04:05 01/21/20 04:05 A&P Assessment and plan (1) Alcohol dependence with withdrawal: -Currently still within the 72 to 96-hour window -On Precedex drip -On scheduled Librium -Currently no withdrawal seizures, monitor respiratory status closely -Low threshold for intubation Status: Acute (2) C. difficile colitis: -Continue oral vancomycin -Ordered KUB Moderate amount stool throughout the large bowel. Suggestion of thickening of the haustral of the transverse colon. -Abdomen a bit more distended today today, decreased bowel sounds -ct abdomen pelvis ordered Status: Acute (3) Aspiration pneumonia: -Chest x-ray shows evidence of aspiration pneumonia, has penicillin allergy -Start Primaxin Status: Acute (4) Hyponatremia: Status: Acute (5) Hypokalemia: Status: Acute (6) Alcohol abuse: -r HIV negative, hepatitis panel negative, liver ultrasound shows hepatomegaly with moderate hepatic steatosis, INR 0.88, repeat electrolytes Status: Acute (7) Thrombocytopenia: 69,000 Status: Acute (8) Hypertensive urgency: Secondary to alcohol withdrawal PRN labetalol, hydralazine, Vasotec Started metoprolol 25 twice daily, clonidine 0.1 twice daily Status: Acute Additional A&P Information Delirium tremens Admit to ICU, high risk for intubation Continue CIWA protocol Currently on a Precedex drip Last alcoholic drink was yesterday, current alcohol level 84 Monitor for refeeding syndrome, Hypokalemia: Potassium 2.9 DVT prophylaxis: Lovenox N.p.o. Full code Attestations Medical Necessity Statement*: Requires continued hospitalization due to alcohol withdrawal, C. 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 difficile colitis A04.72 Aspiration pneumonia J69.0 Hyponatremia E87.1 Hypokalemia E87.6 Alcohol abuse F10.10 Thrombocytopenia D69.6 Hypertensive urgency I16.0
[2020-01-21] MEDS: LORazepam 2 mg/mL INJ 1 mL IM (12:32)
[2020-01-21] MEDS: cloNIDine 0.1 mg Tablet PO (13:13)
[2020-01-21] MEDS: enalaprilat 1.25 mg/mL Inj IVP (13:30)
--- NOTE | 2020-01-21 15:58 | US_ITS ---
WS: [id number] Limited abdomen ultrasound. HISTORY: Evaluate the liver and spleen. Ascites. COMPARISON: None available. Liver: 20.6 cm in length. Liver is enlarged with diffuse low attenuation and coarsened echotexture. Gallbladder: Mildly contracted. No stones identified. CBD: Not imaged. Pancreas: Not imaged. RIGHT kidney was not imaged. Spleen measures 10 cm in length. No abnormality. No ascites. US/US abdomen limited [id number] IMPRESSION: 1. Hepatomegaly with moderate hepatic steatosis. 2. Normal size spleen. 3. No ascites.
[2020-01-21] MEDS: metoprolol tartrate 25 mg Tablet PO (17:37)
--- NOTE | 2020-01-21 17:44 | PC.NURSE ---
patient will awaken but not follow commands, he moves extremities and sometimes speaks to be understood. he spit out his yogurt and metoprolol, may have gotten 25 of the 50mg, did best if a syringe of meds is watered down and put in buccal pouch area.
--- NOTE | 2020-01-21 17:47 | PC.NURSE ---
1400 updated. patient maew but only at times, assisted to turn 2x and he did it himself 2 more times.
--- NOTE | 2020-01-21 17:49 | PC.NURSE ---
patient calm enough to attempt scds at 1600 and he has tolerated although 3 min after placing he said for us to stop messing with him.
[2020-01-21] MEDS: OLANZapine 10 mg VIAL IM (19:29)
--- NOTE | 2020-01-21 19:46 | PC.NURSE ---
Pt became increasingly agitated with staff stating I'm getting out of this fucking bed and leaving! pt was given 2 mg ativan IVP and 10 mg IM zyprexa. pt seems to have calmed down a bit.
[2020-01-21] MEDS: haloperidol inj 5 mg/mL INJ 1 mL IM ×2 (20:49→22:15)
--- NOTE | 2020-01-21 22:47 | XRR_ITS ---
PROCEDURE INFORMATION: Exam: XR Chest, 1 View Exam date and time: 01/21/2020 10:49 PM Age: 44 years old Clinical indication: Device placement; Ett placement (vent status); Additional info: Tube placemnt TECHNIQUE: Imaging protocol: XR of the chest Views: 1 view. COMPARISON: CR Chest 1 [place] [id number] 09/30/2018 5:10 PM FINDINGS: Tubes, catheters and devices: Endotracheal tube in satisfactory position tip above the zach. Nasogastric tube tip below the diaphragm at the level of the body of the stomach. Lungs: No active interstitial or alveolar airspace disease. Pleural space: Unremarkable. No pleural effusion. No pneumothorax. Heart/Mediastinum: Cardiac structures and configuration with mild arterial sclerosis. Bones/joints: Unremarkable. XR/XR chest 1V portable [id number] IMPRESSION: Endotracheal tube in satisfactory position tip above the zach.
[2020-01-21] MEDS: succinylcholine 20 mg/mL SDV 10mL 150 MG IVP (22:49)
[2020-01-21] MEDS: propofol 1,000 MG/100 ML INJ 13.1 MG IV (22:50)
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
[2020-01-22] VITALS (48 sets, daily range): BP systolic 90–140; BP diastolic 62–103; PULSE 65–115; RESP 12–23; TEMP 36.8–37; O2SAT 97–100
[2020-01-22] MEDS: ipratropium-albuterol 3 mL Neb INHALATION ×6 (01:39→23:13)
[2020-01-22] MEDS: cloNIDine 0.1 mg Tablet PO ×2 (02:19→12:52)
[2020-01-22] MEDS: chlordiazePOXIDE 25 mg Capsule 50 MG PO (02:19)
[2020-01-22] MEDS: propofol 1,000 MG/100 ML INJ 19.6 MG IV ×2 (03:08→08:28)
[2020-01-22 04:49] LABS: Basophils % 0.8 %; Eosinophils # 0.1 10^3/uL (0.0-0.8); Eosinophils % 1.9 %; Hemoglobin 12.8 g/dL (11.7-16.6); Lymphocytes % 20.4 %; Mean Corpuscular Hemoglobin 31.8 pg (28.0-34.0); Mean Corpuscular Volume 99.3 fL (80-94); Mean Platelet Volume 10.4 fL (7.4-10.4); Monocytes # 0.9 10^3/uL (0.2-0.9); Monocytes % 18.9 %; Neutrophils # 2.7 10^3/uL (1.8-7.7); Neutrophils % 55.9 %; Nucleated Red Blood Cells % 0 %; Platelet Count 92 10^3/cmm (130-400); Red Blood Count 4.03 10^6/uL (4.1-5.3); Red Cell Distribution Width 12.4 % (12.1-15.1); White Blood Count 4.8 10^3/uL (4.0-10.0)
[2020-01-22 05:08] LABS: Alanine Aminotransferase 25 U/L (0-41); Alkaline Phosphatase 64 IU/L (40-130); Anion Gap 19.9 (5-19); Aspartate Amino Transferase 34 U/L (0-40); Blood Urea Nitrogen 8 mg/dL (6-20); Calcium 9.4 mg/dL (8.5-10.5); Carbon Dioxide 16 mmol/L (22-29); Chloride 106 mmol/L (98-107); Globulin 3.1 g/dL (1.3-4.6); Glomerular Filtration Rate 180.6 mL/min (90-130); Glucose 93 mg/dL (65-115); Magnesium 2.2 mg/dL (1.7-2.3); Osmolality Calculated 284 mOsm/kg (285-295); Phosphorus 3.1 mg/dL (2.5-4.5); Sodium 139 mmol/L (136-145); Total Bilirubin 0.5 mg/dL (0.15-1.2); Total Protein 6.1 g/dL (6.6-8.7)
[2020-01-22 06:08] LABS: Potassium 2.9 mmol/L (3.5-5.1)
[2020-01-22 06:22] LABS: ABG PH Result 7.34 (7.35-7.45); Arterial Blood Gas Hematocrit 40.7 % (42-52); Base Excess ABG -7.7 mmol/L (-2.0-2.0); Blood Gas Sample Site Brachial, right; Blood Gas Sample Type Arterial; HCO3 ABG 16.9 mmol/L (22-26); Oxygen Device VENT
[2020-01-22] MEDS: potassium chloride premix 40 MEQ/100 ML PREMIX 25 MEQ IV ×2 (07:18→11:13)
[2020-01-22] MEDS: enoxaparin 40 mg/0.4 mL Syringe SUBCUT (09:16)
[2020-01-22] MEDS: folic acid 1 mg Tablet PO (09:17)
[2020-01-22] MEDS: metoprolol tartrate 25 mg Tablet PO (09:17)
[2020-01-22] MEDS: multivitamin therapeutic Tablet 1 TAB PO (09:17)
[2020-01-22] MEDS: lisinopril 10 mg Tablet PO (09:17)
[2020-01-22] MEDS: pantoprazole 40 mg SDV IVP (09:17)
[2020-01-22] MEDS: thiamine 100 mg Tablet PO (09:17)
[2020-01-22] MEDS: nicotine 21 mg Patch 1 PATCH TRANSDERMA (09:19)
[2020-01-22] MEDS: sodium chloride 0.9% 1,000 ML 75 ML IV (12:53)
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
[2020-01-22] MEDS: propofol 1,000 MG/100 ML INJ 15.2 MG IV ×2 (13:59→20:14)
--- NOTE | 2020-01-22 14:01 | PM.PN ---
Subjective Subjective: Interval history: Overnight patient was intubated due to self-injurious behavior and hypoactive delirium This morning patient, patient is intubated, sedated, afebrile, normotensive, he is on propofol, has good urine output, Vitals/I&O/Wt Last Vital Signs Temp 98.6 F 01/22/20 12:00 Pulse 90 01/22/20 13:00 Resp 18 01/22/20 13:35 BP 95/65 01/22/20 13:00 Pulse Ox 100 01/22/20 13:00 01/21/20 01/22/20 01/22/20 22:59 06:59 14:59 Intake Total 1238.062 / 2879.454 221.542 / 3100.996 1551.541 / 1551.541 Output Total 900 / 1800 800 / 2600 155 / 155 Balance 338.062 / 1079.454 -578.458 / 709.208 1157.541 / 1396.541 Physical Exam Const: COMMON NORMALS: no acute distress OTHER: Intubated, sedated HENMT: COMMON NORMALS: normocephalic HEAD & SCALP: normocephalic Neck/C-Spine: COMMON NORMALS: no JVD Resp: COMMON NORMALS: normal respiratory effort, No retractions, No use of accessory muscles and clear to auscultation bilaterally AUSCULTATION: clear to auscultation bilaterally Cardio: COMMON NORMALS: no JVD, regular rate, regular rhythm, S1 normal heart sound present and S2 normal heart sound present RATE: regular rate RHYTHM: regular rhythm HEART SOUNDS: S1 normal heart sound present and S2 normal heart sound present GI: COMMON NORMALS: Normal to inspection, nondistended, normoactive bowel sounds present, Soft to palpation, non-tender, No hepatosplenomegaly present, no masses and no bruits PALPATION: Yes Soft to palpation and Yes No hepatosplenomegaly present Extremity: COMMON NORMALS: capillary refill normal, no clubbing, cyanosis or edema, no calf tenderness and no pedal edema Urinary Catheter Management^: Poole: Cath Placed During This Visit: yes Reason for Continuing Indwelling Catheter: Other Urinary Catheter Date of Insertion: 01/22/20 Data : 01/22/20 03:46 01/22/20 03:46 A&P Assessment and plan (1) Alcohol dependence with withdrawal: -Currently is almost out of 96-hour window -Intubated, sedated for agitation,, alcohol withdrawal, delirium tremens -Wean down propofol, continue Versed, ideally off propofol -Continue ventilation, minimize PEEP, minimize FiO2, on Primaxin for aspiration pneumonia -Discontinue Librium -Lovenox for DVT prophylaxis, Protonix for GI prophylaxis, Poole catheter placement, start tube feeds Status: Acute (2) C. difficile colitis: -Continue oral vancomycin -Ordered KUB Moderate amount stool throughout the large bowel. Suggestion of thickening of the haustral of the transverse colon. -CT abdomen pelvis showed no ascites or GI tract obstruction, bilateral patchy ill-defined opacities at lung bases, possible pneumonia, bilateral perinephric stranding, no obstruction is evident Status: Acute (3) Aspiration pneumonia: -Chest x-ray shows evidence of aspiration pneumonia, has penicillin allergy -Continue Primaxin Status: Acute (4) Hyponatremia: -Sodium 139 Status: Acute (5) Hypokalemia: -Potassium 2.9, repleted Status: Acute (6) Alcohol abuse: -r HIV negative, hepatitis panel negative, liver ultrasound shows hepatomegaly with moderate hepatic steatosis, INR 0.88, repeat electrolytes Status: Acute (7) Thrombocytopenia: 69,000 has liver disease, likely second to alcohol Status: Acute (8) Hypertensive urgency: Secondary to alcohol withdrawal PRN labetalol, hydralazine, Vasotec Blood pressures are softer, hold oral medications, continue clonidine Status: Acute Additional A&P Information Delirium tremens Admit to ICU, currently intubated sedated Continue CIAL protocol Monitor for refeeding syndrome, Hypokalemia: Potassium 2.9 DVT prophylaxis: Lovenox N.p.o. 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 difficile colitis A04.72 Aspiration pneumonia J69.0 Hyponatremia E87.1 Hypokalemia E87.6 Alcohol abuse F10.10 Thrombocytopenia D69.6 Hypertensive urgency I16.0
[2020-01-22] MEDS: LORazepam 2 mg/mL INJ 1 mL IVP ×2 (16:19→17:25)
[2020-01-22 17:46] LABS: Glucose Point of Care 124 mg/dL (70-110)
[2020-01-23] VITALS (30 sets, daily range): BP systolic 111–171; BP diastolic 71–121; PULSE 78–117; RESP 11–23; TEMP 36.8–37.3; O2SAT 85–100
[2020-01-23] MEDS: sodium chloride 0.9% 1,000 ML 75 ML IV ×2 (01:34→14:39)
[2020-01-23] MEDS: cloNIDine 0.1 mg Tablet PO ×2 (01:34→13:09)
[2020-01-23] MEDS: propofol 1,000 MG/100 ML INJ 6.5 MG IV (02:53)
[2020-01-23] MEDS: ipratropium-albuterol 3 mL Neb INHALATION ×3 (03:04→11:35)
[2020-01-23 03:52] LABS: INR 0.97 (0.8-1.2)
[2020-01-23] MEDS: LORazepam 2 mg/mL INJ 1 mL IVP ×3 (04:03→23:13)
[2020-01-23 04:04] LABS: Alanine Aminotransferase 27 U/L (0-41); Albumin Level 3.1 g/dL (3.5-5.2); Alkaline Phosphatase 61 IU/L (40-130); Aspartate Amino Transferase 36 U/L (0-40); Basophils % 0.8 %; Blood Urea Nitrogen 7 mg/dL (6-20); C Reactive Protein 71.1 mg/L (0.0-4.9); Carbon Dioxide 17 mmol/L (22-29); Chloride 108 mmol/L (98-107); Eosinophils # 0.1 10^3/uL (0.0-0.8); Eosinophils % 1.4 %; Globulin 2.9 g/dL (1.3-4.6); Glomerular Filtration Rate 146.4 mL/min (90-130); Glucose 99 mg/dL (65-115); Hematocrit 37.3 % (42.0-52.0); Hemoglobin 11.8 g/dL (11.7-16.6); Lymphocytes # 1.1 10^3/uL (0.8-4.8); Lymphocytes % 21.5 %; Magnesium 2.1 mg/dL (1.7-2.3); Mean Corpuscular HGB Conc 31.6 g/dL (30.0-36.0); Mean Corpuscular Volume 101.1 fL (80-94); Mean Platelet Volume 10.4 fL (7.4-10.4); Monocytes # 1.4 10^3/uL (0.2-0.9); Monocytes % 27.4 %; Neutrophils # 2.2 10^3/uL (1.8-7.7); Neutrophils % 43.8 %; Nucleated Red Blood Cells % 0 %; Osmolality Calculated 286 mOsm/kg (285-295); Phosphorus 2.1 mg/dL (2.5-4.5); Platelet Count 136 10^3/cmm (130-400); Positive C 1; Positive M 1; Red Blood Count 3.69 10^6/uL (4.1-5.3); Red Cell Distribution Width 12.8 % (12.1-15.1); Sodium 140 mmol/L (136-145); Total Bilirubin 0.4 mg/dL (0.15-1.2); White Blood Count 5.1 10^3/uL (4.0-10.0)
[2020-01-23 04:11] LABS: Procalcitonin 0.19 ng/mL (0-0.5)
[2020-01-23 05:04] LABS: ABG PCO2 24.5 mmHg (35-45); ABG PH Result 7.45 (7.35-7.45); Arterial Blood Gas Hematocrit 36.8 % (42-52); Base Excess ABG -5.6 mmol/L (-2.0-2.0); Blood Gas Sample Site Brachial, right; Blood Gas Sample Type Arterial; Blood Gas Tidal Volume 0.55; HCO3 ABG 16.9 mmol/L (22-26); Oxygen Device VENT
[2020-01-23 06:52] LABS: Slide Review Slide Review Perform
--- NOTE | 2020-01-23 07:00 | XRR_ITS ---
PROCEDURE INFORMATION: Exam: XR Chest, 1 View Exam date and time: 01/23/2020 5:08 AM Age: 44 years old Clinical indication: Dyspnea; Additional info: SOB TECHNIQUE: Imaging protocol: XR of the chest Views: 1 view. COMPARISON: CR XR chest 1V portable [id number] 01/21/2020 10:40 PM FINDINGS: Tubes, catheters and devices: Endotracheal tube tip resides 1.4 cm above the zach. Enteric tube extends to the left abdomen. Lungs: No focal parenchymal consolidation. Minor retrocardiac left lower lung atelectasis or scarring. Pleural space: Unremarkable. No pleural effusion. No pneumothorax. Heart/Mediastinum: Unremarkable. No cardiomegaly. Bones/joints: Degenerative change of the spine. XR/XR chest 1V portable [id number] IMPRESSION: Minor residual atelectasis or scarring retrocardiac left lower lung.
[2020-01-23 08:48] LABS: Glucose Point of Care 102 mg/dL (70-110)
[2020-01-23] MEDS: enoxaparin 40 mg/0.4 mL Syringe SUBCUT (08:54)
[2020-01-23] MEDS: folic acid 1 mg Tablet PO (08:54)
[2020-01-23] MEDS: thiamine 100 mg Tablet PO (08:54)
[2020-01-23] MEDS: multivitamin therapeutic Tablet 1 TAB PO (08:54)
[2020-01-23] MEDS: pantoprazole 40 mg SDV IVP (08:58)
[2020-01-23] MEDS: nicotine 21 mg Patch 1 PATCH TRANSDERMA (08:59)
[2020-01-23 12:12] LABS: Glucose Point of Care 103 mg/dL (70-110)
--- NOTE | 2020-01-23 12:20 | PM.PN ---
Subjective Subjective: Interval history: Overnight patient had no acute events, afebrile, normotensive, this morning did well on weaning trials, minimally anxious, this morning patient was successfully extubated, extubated to room air, extubated on Precedex, currently following commands, squeezing fingers, opening his eyes Vitals/I&O/Wt Last Vital Signs Temp 99.2 F 01/23/20 10:00 Pulse 78 01/23/20 11:39 Resp 11 L 01/23/20 11:36 BP 143/98 01/23/20 10:00 Pulse Ox 98 01/23/20 11:36 01/22/20 01/23/20 01/23/20 22:59 06:59 14:59 Intake Total 562.970 / 2114.511 1253.815 / 3368.326 Output Total 225 / 380 150 / 150 Balance 337.970 / 4331.051 2526.815 / 2988.326 -120 / -120 Physical Exam Narrative: EXAM NARRATIVE: Follow commands, opens his eyes, squeezes fingers Const: COMMON NORMALS: no acute distress HENMT: COMMON NORMALS: normocephalic HEAD & SCALP: normocephalic Neck/C-Spine: COMMON NORMALS: no JVD Resp: COMMON NORMALS: normal respiratory effort, No retractions, No use of accessory muscles and clear to auscultation bilaterally AUSCULTATION: clear to auscultation bilaterally Cardio: COMMON NORMALS: no JVD, regular rate, regular rhythm, S1 normal heart sound present and S2 normal heart sound present RATE: regular rate RHYTHM: regular rhythm HEART SOUNDS: S1 normal heart sound present and S2 normal heart sound present GI: COMMON NORMALS: Normal to inspection, nondistended, normoactive bowel sounds present, Soft to palpation, non-tender, No hepatosplenomegaly present, no masses and no bruits PALPATION: Yes Soft to palpation and Yes No hepatosplenomegaly present Extremity: COMMON NORMALS: capillary refill normal, no clubbing, cyanosis or edema, no calf tenderness and no pedal edema Urinary Catheter Management^: Poole: Cath Placed During This Visit: yes Reason for Continuing Indwelling Catheter: Accurate Measurement of Urinary Output in Critically Ill Patients Urinary Catheter Date of Insertion: 01/22/20 Data : 01/23/20 03:04 01/23/20 03:04 A&P Assessment and plan (1) Alcohol dependence with withdrawal: -Currently out of 96-hour window -Successfully extubated, monitor for agitation -Wean down Precedex -Wean Librium -Lovenox for DVT prophylaxis, Protonix for GI prophylaxis, Poole catheter placement, start tube feeds Status: Acute (2) C. difficile colitis: -Continue oral vancomycin -Ordered KUB Moderate amount stool throughout the large bowel. Suggestion of thickening of the haustral of the transverse colon. -CT abdomen pelvis showed no ascites or GI tract obstruction, bilateral patchy ill-defined opacities at lung bases, possible pneumonia, bilateral perinephric stranding, no obstruction is evident Status: Acute (3) Aspiration pneumonia: -Chest x-ray shows evidence of aspiration pneumonia, has penicillin allergy -Continue Primaxin Status: Acute (4) Hyponatremia: -Sodium 139 Status: Acute (5) Hypokalemia: -Potassium 2.9, repleted Status: Acute (6) Alcohol abuse: -r HIV negative, hepatitis panel negative, liver ultrasound shows hepatomegaly with moderate hepatic steatosis, INR 0.88, repeat electrolytes Status: Acute (7) Thrombocytopenia: 69,000 has liver disease, likely second to alcohol Status: Acute (8) Hypertensive urgency: Secondary to alcohol withdrawal PRN labetalol, hydralazine, Vasotec Blood pressures are softer, hold oral medications, continue clonidine Status: Acute Additional A&P Information Delirium tremens Admit to ICU, successfully extubated Continue CIWA protocol Monitor for refeeding syndrome, Hypokalemia: Potassium 2.9, received 80 mg today DVT prophylaxis: Lovenox N.p.o. Full code Attestations Medical Necessity Statement*: Patient requires continued hospitalization due to alcohol withdrawal, C. 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 difficile colitis A04.72 Aspiration pneumonia J69.0 Hyponatremia E87.1 Hypokalemia E87.6 Alcohol abuse F10.10 Thrombocytopenia D69.6 Hypertensive urgency I16.0
--- NOTE | 2020-01-23 12:31 | PC.NURSE ---
[address] Will present, RT extubated patient, tolerated well. Removed OG tube also. Stopped tube feeding. Placed on 2l n/c. Soft wrist restraints released. No c/o's.
[2020-01-23] MEDS: chlordiazePOXIDE 10 mg Capsule 20 MG PO ×2 (13:09→17:32)
--- NOTE | 2020-01-23 15:41 | PC.RESP ---
PT. TRYING TO GET OUT OF BED. NO TREATMENT GIVEN
[2020-01-23] MEDS: LORazepam 2 mg Tablet PO (17:13)
[2020-01-23] MEDS: hyDRALAzine 20 mg/mL INJ 1 mL 10 MG IVP ×2 (18:09→22:43)
[2020-01-23] MEDS: labetalol 5 mg/mL SDV 20mL 20 MG IVP (21:42)
[2020-01-23] MEDS: haloperidol inj 5 mg/mL INJ 1 mL IM (22:33)
[2020-01-23] MEDS: OLANZapine 10 mg VIAL IM (23:37)
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
[2020-01-24] VITALS (26 sets, daily range): BP systolic 113–175; BP diastolic 86–111; PULSE 56–113; RESP 7–21; TEMP 37.1; O2SAT 93–100
[2020-01-24] MEDS: LORazepam 2 mg/mL INJ 1 mL IVP ×3 (00:38→20:46)
[2020-01-24] MEDS: haloperidol inj 5 mg/mL INJ 1 mL IM (00:38)
[2020-01-24] MEDS: dexmedetomidine 400 MCG in sodium chloride 0.9% (100 ml) 100 ML 18.9 MCG IV ×3 (03:30→08:19)
[2020-01-24] MEDS: sodium chloride 0.9% 1,000 ML 75 ML IV (04:04)
[2020-01-24 04:54] LABS: Basophils % 0.9 %; Eosinophils # 0.1 10^3/uL (0.0-0.8); Eosinophils % 1.7 %; Hematocrit 38.9 % (42.0-52.0); Hemoglobin 12.6 g/dL (11.7-16.6); Lymphocytes % 22.4 %; Mean Corpuscular HGB Conc 32.4 g/dL (30.0-36.0); Mean Corpuscular Hemoglobin 32.5 pg (28.0-34.0); Mean Corpuscular Volume 100.3 fL (80-94); Mean Platelet Volume 9.9 fL (7.4-10.4); Monocytes # 1.3 10^3/uL (0.2-0.9); Monocytes % 28.5 %; Neutrophils # 1.9 10^3/uL (1.8-7.7); Neutrophils % 41.1 %; Nucleated Red Blood Cells % 0 %; Platelet Count 181 10^3/cmm (130-400); Red Blood Count 3.88 10^6/uL (4.1-5.3); Red Cell Distribution Width 12.4 % (12.1-15.1); White Blood Count 4.6 10^3/uL (4.0-10.0)
[2020-01-24 05:09] LABS: Alanine Aminotransferase 26 U/L (0-41); Albumin Level 3.2 g/dL (3.5-5.2); Alkaline Phosphatase 63 IU/L (40-130); Aspartate Amino Transferase 36 U/L (0-40); Blood Urea Nitrogen 2 mg/dL (6-20); C Reactive Protein 61.5 mg/L (0.0-4.9); Calcium 9.3 mg/dL (8.5-10.5); Carbon Dioxide 21 mmol/L (22-29); Chloride 106 mmol/L (98-107); Globulin 3.3 g/dL (1.3-4.6); Glomerular Filtration Rate 233.7 mL/min (90-130); Glucose 126 mg/dL (65-115); Magnesium 2.1 mg/dL (1.7-2.3); Osmolality Calculated 293 mOsm/kg (285-295); Phosphorus 3.7 mg/dL (2.5-4.5); Sodium 143 mmol/L (136-145); Total Bilirubin 0.5 mg/dL (0.15-1.2); Total Protein 6.5 g/dL (6.6-8.7)
[2020-01-24] MEDS: hyDRALAzine 20 mg/mL INJ 1 mL 10 MG IVP (05:34)
[2020-01-24 06:13] LABS: Slide Review Slide Review Perform
[2020-01-24 06:34] LABS: Procalcitonin 0.12 ng/mL (0-0.5)
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
[2020-01-24] MEDS: pantoprazole 40 mg SDV IVP (09:41)
[2020-01-24] MEDS: folic acid 1 mg Tablet PO (09:42)
[2020-01-24] MEDS: nicotine 21 mg Patch 1 PATCH TRANSDERMA (09:42)
[2020-01-24] MEDS: thiamine 100 mg Tablet PO (09:42)
[2020-01-24] MEDS: enoxaparin 40 mg/0.4 mL Syringe SUBCUT (09:42)
[2020-01-24] MEDS: chlordiazePOXIDE 25 mg Capsule 50 MG PO ×2 (09:42→19:43)
[2020-01-24] MEDS: multivitamin therapeutic Tablet 1 TAB PO (09:42)
--- NOTE | 2020-01-24 09:48 | PM.PN ---
Subjective Subjective: Interval history: Last 24 hours patient was extubated. Overnight patient was agitated for which he received 8 mg of Haldol in divided doses, 10 mg of IV Zyprexa and then was later started on Precedex going as high as 1.7. Today morning it was at 1.2. Today on examination patient was sedated arousable only to sternal rub but was maintaining his airway saturating on room air at 95%. As per nurse patient has not had any more diarrhea. Labs, vitals noted. Vitals/I&O/Wt Last Vital Signs Temp 98.3 F 01/23/20 16:08 Pulse 64 01/24/20 08:00 Resp 7 L 01/24/20 08:00 BP 140/94 01/24/20 08:00 Pulse Ox 95 01/24/20 08:00 01/23/20 01/24/20 01/24/20 22:59 06:59 14:59 Intake Total 350 / 1461.25 1578.420 / 3039.670 68.985 / 68.985 Output Total 1999 / 2149 2700 / 4850 Balance -1650 / -688.75 -1121.580 / -1810.330 68.985 / 68.985 Physical Exam Narrative: EXAM NARRATIVE: General: Sedated, arousable on sternal rub, maintaining airway HEENT: PERRLA, pupils bilaterally equal and reactive Chest: Normal vesicular breath sounds, no added sounds, equal good air entry bilaterally CVS: S1-S2 regular, no murmurs, no tachycardia, no gallops, no rubs Abdomen: Soft, nontender, no organomegaly, bowel sounds present Neuro: GCS: E2M2V2, maintaining airway saturation 95% on room air Urinary Catheter Management^: Poole: Cath Placed During This Visit: yes Reason for Continuing Indwelling Catheter: Accurate Measurement of Urinary Output in Critically Ill Patients Urinary Catheter Date of Insertion: 01/22/20 Data : 01/24/20 04:11 01/24/20 04:11 A&P Assessment and plan (1) Alcohol dependence with withdrawal: Status: Acute (2) C. difficile colitis: Status: Acute (3) Aspiration pneumonia: Status: Acute (4) Hyponatremia: -Sodium 139 Status: Acute (5) Hypokalemia: Status: Acute (6) Alcohol abuse: -HIV negative, hepatitis panel negative, liver ultrasound shows hepatomegaly with moderate hepatic steatosis, INR 0.88, repeat electrolytes Status: Acute (7) Thrombocytopenia: Due to liver disease, likely secondary to alcohol Improving. Continue to Monitor Status: Acute (8) Hypertensive urgency: Status: Acute Additional A&P Information Alcohol abuse: Alcohol withdrawal/delirium tremens: Extubated on January 22. Maintaining airway. Wean Precedex to when patinet is awake. Increase Librium to 50 every 6 hourly. We will give Librium once patient is more awake. Ativan as per CIWA score. Normal saline at 75 cc/h. Psych eval once more awake. If patient is more appropriately awake once Precedex is trended down we will get a CT head. Will confirm with if patient will need psychiatric/pain medication at home. No medication charted in the system. C. difficile colitis: Patient has not had any bowel movement since last night. Continue with vancomycin 125 every 6 hourly. Patient will need overall 14 days of treatment. Aspiration pneumonia: No leukocytosis anymore, Afebrile Completed course of Abx. Will stop antibiotics today. We will continue to monitor. Hypokalemia: Potassium 3.0, Replete with 40 meq IV and 40 meq oral once more awake DVT prophylaxis: Lovenox N.p.o. as patient is sedated once awake regular diet. Protonix for PUD prophylaxis Full code Attestations Medical Necessity Statement*: alcohol withdrawal Time Spent in Patient Care: Greater than 35 minutes Coding Level of Care Code Acute [place] [employer] Tier for [facility] Fwd Diagnoses Alcohol dependence with withdrawal F10.239 C. difficile colitis A04.72 Aspiration pneumonia J69.0 Hyponatremia E87.1 Hypokalemia E87.6 Alcohol abuse F10.10 Thrombocytopenia D69.6 Hypertensive urgency I16.0
[2020-01-24] MEDS: dexmedetomidine 400 MCG in sodium chloride 0.9% (100 ml) 100 ML 9.4 MCG IV (12:17)
[2020-01-24] MEDS: potassium chloride premix 40 MEQ/100 ML PREMIX 25 MEQ IV (18:12)
[2020-01-24] MEDS: sodium chlor 0.9% + KCl 40 mEq 40 MEQ/1,000 ML BAG 75 MEQ IV (18:12)
[2020-01-24] MEDS: morphine 4 mg/mL SDV 1 mL 2 MG IVP (19:42)
--- NOTE | 2020-01-24 22:30 | PC.NURSE ---
Addendum entered by Marianne Shi RN 01/24/20 22:31: 92 mL witnessed waste Original Note: 92ml of versed gtt wasted from patient's room with Marianne HAMILTON as witness.
[2020-01-25] VITALS (29 sets, daily range): BP systolic 104–179; BP diastolic 52–113; PULSE 75–135; RESP 8–22; TEMP 36.4–37; O2SAT 94–100
[2020-01-25] MEDS: morphine 4 mg/mL SDV 1 mL 2 MG IVP ×2 (00:16→05:04)
[2020-01-25] MEDS: LORazepam 2 mg/mL INJ 1 mL IVP ×2 (00:17→05:04)
[2020-01-25] MEDS: chlordiazePOXIDE 25 mg Capsule 50 MG PO ×4 (00:18→20:51)
[2020-01-25] MEDS: cloNIDine 0.1 mg Tablet PO (01:00)
--- NOTE | 2020-01-25 03:21 | PHA.FALL ---
A Pharmacy Consult Was Conducted For Sherif Rangel Due To: Ba Fall Scale Risk Level: High Fall Risk On 01/24/20 20:00 And A Medication Fall Risk Score Greater Than 10. The Recommendations Are As Follows: Chlordiazepoxide 50 mg can cause psychomotor impairment, sedation, orthostatic hypotension, confusion, dizziness, confusion Lorazepam Olanzapine Morphine sedation, confusion Labetalol Orthostatic hypotension, dizziness, syncope, bradycardia, impaired cerebral perfusion clonidine Thank you, [place], [facility]
[2020-01-25 05:31] LABS: Basophils # 0.1 10^3/uL (0.0-0.1); Basophils % 1.1 %; Eosinophils # 0.1 10^3/uL (0.0-0.8); Eosinophils % 1.6 %; Hematocrit 42.6 % (42.0-52.0); Hemoglobin 13.3 g/dL (11.7-16.6); Lymphocytes % 18.4 %; Mean Corpuscular HGB Conc 31.2 g/dL (30.0-36.0); Mean Corpuscular Hemoglobin 32.8 pg (28.0-34.0); Mean Corpuscular Volume 105.2 fL (80-94); Monocytes # 1.4 10^3/uL (0.2-0.9); Monocytes % 24.8 %; Neutrophils # 2.8 10^3/uL (1.8-7.7); Neutrophils % 50.5 %; Nucleated Red Blood Cells % 0 %; Platelet Count 201 10^3/cmm (130-400); Red Blood Count 4.05 10^6/uL (4.1-5.3); Red Cell Distribution Width 12.3 % (12.1-15.1); White Blood Count 5.6 10^3/uL (4.0-10.0)
[2020-01-25 05:43] LABS: Alanine Aminotransferase 23 U/L (0-41); Alkaline Phosphatase 62 IU/L (40-130); Anion Gap 18.5 (5-19); Aspartate Amino Transferase 34 U/L (0-40); Blood Urea Nitrogen 3 mg/dL (6-20); Carbon Dioxide 19 mmol/L (22-29); Chloride 108 mmol/L (98-107); Globulin 3.1 g/dL (1.3-4.6); Glomerular Filtration Rate 180.6 mL/min (90-130); Glucose 69 mg/dL (65-115); Magnesium 2.1 mg/dL (1.7-2.3); Osmolality Calculated 284 mOsm/kg (285-295); Phosphorus 2.7 mg/dL (2.5-4.5); Potassium 5.5 mmol/L (3.5-5.1); Sodium 140 mmol/L (136-145); Total Bilirubin 0.5 mg/dL (0.15-1.2); Total Protein 6.1 g/dL (6.6-8.7)
[2020-01-25] MEDS: sodium chloride 0.9% 1,000 ML 75 ML IV (06:17)
[2020-01-25] MEDS: enoxaparin 40 mg/0.4 mL Syringe SUBCUT (07:39)
[2020-01-25] MEDS: OLANZapine 10 mg VIAL IM (07:39)
[2020-01-25] MEDS: LORazepam 2 mg/mL INJ 1 mL IM (07:40)
[2020-01-25] MEDS: pantoprazole 40 mg SDV IVP (07:40)
[2020-01-25] MEDS: thiamine 100 mg Tablet PO (07:40)
[2020-01-25] MEDS: multivitamin therapeutic Tablet 1 TAB PO (07:41)
[2020-01-25] MEDS: folic acid 1 mg Tablet PO (07:41)
[2020-01-25] MEDS: nicotine 21 mg Patch 1 PATCH TRANSDERMA (07:42)
[2020-01-25] MEDS: hyDRALAzine 20 mg/mL INJ 1 mL 10 MG IVP (08:38)
[2020-01-25] MEDS: ipratropium-albuterol 3 mL Neb INHALATION (09:09)
--- NOTE | 2020-01-25 10:04 | PC.RESP ---
SMOKING CESSATION INFORMATION SENT TO PATIENT.
--- NOTE | 2020-01-25 10:10 | P.PN_ITS ---
Subjective Subjective: Interval history: No events overnight. Today morning examination patient is a lot more awake. He continues to have tremors, complaining of dizziness getting sweaty but denies having any vomiting but complains of nausea and abdominal pain, chest pain, palpitations. On examination patient is on Precedex of 0.1. His heart rate has been running in 110 to 115 bpm. Vitals/I&O/Wt Last Vital Signs Temp 97.6 F 01/25/20 04:00 Pulse 100 01/25/20 09:09 Resp 20 H 01/25/20 09:09 BP 137/99 01/25/20 04:00 Pulse Ox 98 01/25/20 09:09 01/24/20 01/25/20 01/25/20 22:59 06:59 14:59 Intake Total 1540 / 1645.505 580 / 2225.505 104 / 104 Output Total 4500 / 4500 700 / 5200 Balance -2960 / -2854.495 -120 / -2974.495 104 / 104 Physical Exam Narrative: EXAM NARRATIVE: General: AO x3, jittery, tremulous, CIWA?8 HEENT: PERRLA, pupils bilaterally equal and reactive Chest: Normal vesicular breath sounds, no added sounds, equal good air entry bilaterally CVS: S1-S2 regular, no murmurs, tachycardia, no gallops, no rubs Abdomen: Soft, nontender, no organomegaly, bowel sounds present Neuro: GCS: Moving all 4 limbs, pupils bilaterally equal and reactive, no facial deformity Urinary Catheter Management^: Poole: Cath Placed During This Visit: yes Reason for Continuing Indwelling Catheter: Accurate Measurement of Urinary Output in Critically Ill Patients Urinary Catheter Date of Insertion: 01/22/20 Data : 01/25/20 04:40 01/25/20 04:40 A&P Assessment and plan (1) Alcohol dependence with withdrawal: Status: Acute (2) C. difficile colitis: Status: Acute (3) Aspiration pneumonia: Status: Acute (4) Alcohol abuse: -HIV negative, hepatitis panel negative, liver ultrasound shows hepatome danielle with moderate hepatic steatosis, INR 0.88, repeat electrolytes Status: Acute (5) Thrombocytopenia: Due to liver disease, likely secondary to alcohol Improving. Continue to Monitor Status: Acute (6) Hypertensive urgency: Status: Acute (7) Hypokalemia: Status: Acute (8) Hyponatremia: -Sodium 139 Status: Acute (9) Tachycardia: Status: Acute Additional A&P Information Alcohol abuse: Alcohol withdrawal/delirium tremens: Extubated on January 22. Maintaining airway. Continue Precedex. Can increase up to 0.5. CIWA still high. For now continue with Librium to 50 every 6 hourly. We will try to wean from tomorrow. Ativan as per CIWA score. Discontinue IV fluid and start patient on diet. We will consult psych today. Gabapentin 300 mg twice daily. Zyprexa 15 mg p.o. at bedtime. Held on 1 mg every 2 hour as needed. Hypertension: Blood pressures a lot better controlled now. Start patient on amlodipine 5 mg daily. Tachycardia: Most likely because of alcohol withdrawal. For now we will start him on Lopressor 25 mg twice daily. C. difficile colitis: 1 episode of mucoid bowel movement but no diarrhea. Continue with vancomycin 125 every 6 hourly. Day 7/14 of treatment. Aspiration pneumonia: No leukocytosis anymore, Afebrile Completed course of Abx. Lovenox for DVT prophylaxis Regular diet Pepcid for PUD prophylaxis Full code Attestations Medical Necessity Statement*: Alcohol withdrawal Time Spent in Patient Care: Greater than 35 minutes (>than 50% of time spe nt in counselling and/or direct pt care on unit) . Coding Level of Care Code Acute Transport Operations Inspector for [facility] Fwd Diagnoses Alcohol dependence with withdrawal F10.239 C. difficile colitis A04.72 Aspiration pneumonia J69.0 Alcohol abuse F10.10 Thrombocytopenia D69.6 Hypertensive urgency I16.0 Hypokalemia E87.6 Hyponatremia E87.1 Tachycardia R00.0
[2020-01-25] MEDS: amlodipine 10 mg Tablet PO (10:49)
[2020-01-25] MEDS: metoprolol tartrate 25 mg Tablet PO (14:51)
[2020-01-25] MEDS: gabapentin 300 mg Capsule PO (14:52)
--- NOTE | 2020-01-25 16:23 | PC.NURSE ---
ON FIRST ASSESSMENT PATIENT WAS FOUND HAVING HAD PULLED OFF ALL HIS LEADS, PULSE OX , SPILLED HIS WATER, AND PLANING ON GETTING UP AND GOING HOME. EQUIPTMENT REPLACED. PATIENT AWARE HE IS IN THE HOSPITAL BUT HAS NO REAL IDEA OF THE TIME AND CIRCUMSTANCE HE HAS A MODERATE TREMOR , OFTEN SEES HALLUCINATIONS SUCH THINKING A BSC WAS A FAN AND SAYING IT WORKED WELL. PATIENT UNABLE TO STAND AND SWIVEL TO BSC YET HE WANTED TO WALK THE HALLS, PT ORDERED. HIS FOOD NEEDED TO BE CUT UP FOR HIM OR HE WOULD GIVE UP TRYING TO EAT. HE HAD ONE STOOL IN THE BSC MUCOUS AND BROWN IN COLOR. HE COMPLAINED OF NEEDING TO VOID AND WANTING TO PULL OUT THE HERNADEZ. I REMOVED IT FOR SAFETY OF 1329.ONCE HE HAD THE HERNADEZ OUT HE SEEMED TO REST, I ALSO PLACED PULL UP BREIFS ON HIM AND THIS BROUNGHT HIM COMFORT. HIS WAS UPDATED. HE REFUSED TO BRUSH HIS GUMS, HIS TEETH ARE AT HOME . EXPLAINED TO THE PATIENT I WAS AVOIDING GIVING HIM EXTRA SEDATION TO HELP CLEAR HIS MIND. ONCE HE COOPERATED WITH STAFF, UNDERSTOOD THAT HE WAS TOO WEAK TO GET UP ALONE, AND ABLE TO EAT /FEED HIMSELF HE [facility] , HE APPOLOGIZED FOR HIS OBSTINANT BEHAVIOR AND WE GOT ALONG MUCH BETTER. HIS BED SHEETS WERE CHANGED 2X.
[2020-01-25] MEDS: OLANZapine 5 mg TABLET 15 MG PO (20:52)
[2020-01-26] VITALS (29 sets, daily range): BP systolic 126–182; BP diastolic 67–134; PULSE 80–122; RESP 10–23; TEMP 36.6–37.2; O2SAT 92–100
[2020-01-26] MEDS: hyDRALAzine 20 mg/mL INJ 1 mL 10 MG IVP (00:12)
[2020-01-26] MEDS: chlordiazePOXIDE 25 mg Capsule 50 MG PO ×3 (01:33→14:46)
[2020-01-26] MEDS: dexmedetomidine 400 MCG in sodium chloride 0.9% (100 ml) 100 ML IV (01:58)
[2020-01-26] MEDS: LORazepam 2 mg/mL INJ 1 mL IVP (04:09)
--- NOTE | 2020-01-26 08:04 | P.PN_ITS ---
Subjective Subjective: Interval history: No acute events overnight. Patient is a lot more calm today morning. No episodes of agitation. Last 24 hours he has required 50 mg of Haldol every 6 hours, 12 mg of oral Zyprexa, 2 mg of IV Ativan. On examination today morning patient is sitting in bed, still very tremulous, complaining of mild dizziness, has occasional hallucinations when he thinks he still at home, thinks his food is talking to him. Denies any headache, nausea, vomiting, abdominal pain. Vitals/I&O/Wt Last Vital Signs Temp 99.0 F 01/26/20 06:00 Pulse 97 01/26/20 06:00 Resp 19 H 01/26/20 06:00 BP 163/91 01/26/20 06:00 Pulse Ox 98 01/26/20 06:00 01/25/20 01/26/20 01/26/20 22:59 06:59 14:59 Intake Total 350 / 914 202.058 / 1116.058 Output Total 1590 / 2040 Balance 350 / 464 -1387.942 / -923.942 Physical Exam Narrative: EXAM NARRATIVE: General: AO x3, jittery, tremulous, CIWA?8 HEENT: PERRLA, pupils bilaterally equal and reactive Chest: Normal vesicular breath sounds, no added sounds, equal good air entry bilaterally CVS: S1-S2 regular, no murmurs, tachycardia, no gallops, no rubs Abdomen: Soft, nontender, no organomegaly, bowel sounds present Neuro: Moving all 4 limbs, pupils bilaterally equal and reactive, no facial deformity Urinary Catheter Management^: Poole: Cath Placed During This Visit: yes, but has since been removed by the nurse Reason for Continuing Indwelling Catheter: Accurate Measurement of Urinary Output in Critically Ill Patients Urinary Catheter Date of Insertion: 01/22/20 Date Urinary Catheter Removed: 01/25/20 Time Urinary Catheter Discontinued: 13:37 Data : 01/25/20 04:40 01/26/20 08:00 A&P Assessment and plan (1) Wernicke encephalopathy: Status: Acute (2) Alcohol dependence with withdrawal: Status: Acute (3) C. difficile colitis: Status: Acute (4) Aspiration pneumonia: Status: Acute (5) Alcohol abuse: -HIV negative, hepatitis panel negative, liver ultrasound shows hepatomegaly with moderate hepatic steatosis, INR 0.88, repeat electrolytes Status: Acute (6) Thrombocytopenia: Due to liver disease, likely secondary to alcohol Improving. Continue to Monitor Status: Acute (7) Hypertensive urgency: Status: Acute (8) Hypokalemia: Status: Acute (9) Hyponatremia: -Sodium 139 Status: Acute (10) Tachycardia: Status: Acute Additional A&P Information Alcohol abuse: Alcohol withdrawal/delirium tremens: Extubated on January 22. Maintaining airway. Because of continued confusion, ataxia and chronic alcoholism Wernicke's encephalopathy is of high chance. CT head done on admission was negative for any ventriculomegaly. Patient has remained afebrile does not have any hypothermia, denies of having any photophobia, neck stiffness. We will decrease Librium to 50 mg 8 hourly. Haldol IV as needed every 2 hours. Continue with gabapentin 3 mg twice daily and Zyprexa 15 mg oral at bedtime. For possible Wernicke's encephalopathy: We will l give him 1 more banana bag followed by thiamine 250 mg IV daily for 5 days Continue with oral folic acid. We will monitor blood sugars. If following we will start him on D5. We will start patient on hypoglycemia protocol. Check blood sugars before meals and at bedtime. We will try to avoid use of any further IV Ativan or Precedex. If patient does not improve with these interventions have discussed the case with Dr. Handy patient would most likely need a 96-hour hold and transferred to neuropsych unit. Hypertension: Blood pressure better controlled. Continue with amlodipine 10 mg daily, Lopressor 25 mg twice daily C. difficile colitis: Continue with vancomycin 125 mg every 6 hourly. Day 814 of treatment. Aspiration pneumonia: No leukocytosis anymore, Afebrile Completed course of Abx. Lovenox for DVT prophylaxis Regular diet Pepcid for PUD prophylaxis Full code Continue with one-to-one sitter. If patient does not require any more Precedex in next 24 hours we will transfer him out of ICU. 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 difficile colitis A04.72 Aspiration pneumonia J69.0 Alcohol abuse F10.10 Thrombocytopenia D69.6 Hypertensive urgency I16.0 Hypokalemia E87.6 Hyponatremia E87.1 Tachycardia R00.0
[2020-01-26 08:30] LABS: Alanine Aminotransferase 24 U/L (0-41); Albumin Level 3.2 g/dL (3.5-5.2); Alkaline Phosphatase 62 IU/L (40-130); Anion Gap 22.4 (5-19); Blood Urea Nitrogen 3 mg/dL (6-20); Calcium 9.6 mg/dL (8.5-10.5); Carbon Dioxide 20 mmol/L (22-29); Chloride 99 mmol/L (98-107); Globulin 3.5 g/dL (1.3-4.6); Glomerular Filtration Rate 180.6 mL/min (90-130); Glucose 82 mg/dL (65-115); Osmolality Calculated 281 mOsm/kg (285-295); Potassium 3.4 mmol/L (3.5-5.1); Sodium 138 mmol/L (136-145); Total Bilirubin 0.5 mg/dL (0.15-1.2); Total Protein 6.7 g/dL (6.6-8.7)
[2020-01-26] MEDS: morphine 4 mg/mL SDV 1 mL 2 MG IVP ×3 (08:30→19:43)
[2020-01-26] MEDS: nicotine 21 mg Patch 1 PATCH TRANSDERMA (08:30)
[2020-01-26] MEDS: enoxaparin 40 mg/0.4 mL Syringe SUBCUT (08:31)
[2020-01-26] MEDS: famotidine 20 mg Tablet PO ×2 (08:33→15:28)
[2020-01-26] MEDS: metoprolol tartrate 25 mg Tablet PO ×2 (08:33→15:24)
[2020-01-26] MEDS: thiamine 100 mg Tablet PO (08:33)
[2020-01-26] MEDS: multivitamin therapeutic Tablet 1 TAB PO (08:34)
[2020-01-26] MEDS: gabapentin 300 mg Capsule PO ×2 (08:34→15:24)
[2020-01-26] MEDS: haloperidol inj 5 mg/mL INJ 1 mL 1 MG IVP ×5 (08:34→21:34)
[2020-01-26] MEDS: folic acid 1 mg Tablet PO (08:34)
[2020-01-26 08:35] LABS: Aspartate Amino Transferase 34 U/L (0-40)
[2020-01-26] MEDS: amlodipine 5 mg Tablet 10 MG PO (08:35)
--- NOTE | 2020-01-26 12:51 | P.CONIM_ITS ---
Providers/Reason for Consult Consulting Physican/Specialty*: Mark Handy MD. Psychiatry. Reason for Consult*: Alcohol withdrawal/medication management Attending Physician: Vahid Nunn MD Psych Consult HPI History of Present Illness Sherif Rangel is a 44 year old male Sherif who to the emergency room, with alcohol withdrawal. He reported to the emergency room team that he was drinking about thirty beers a day, and that he had been trying to cut back. He recently had been averaging ten or less beers a day, trying to stay in the seven to ten range. He started having withdrawal symptoms with multiple bouts of emesis, and only had about four beers when he came in on 01-17. The patient was admitted to the ICU where his withdrawal worsened. A consult for psychiatry was placed secondary to continued agitation as he is withdrawing from the alcohol. Today, he presents as a limited historian, he is clearly out of it. He is able to communicate his wishes, but is unable to really articulate historical data, pretty much mumbling, but in a way that it is perceivable what his desire is. He has struggled with both the withdrawal and C-difficile. At the time that this conventional mortgage underwriter came to the room, he had an episode where he needed to get to the bathroom quickly and appeared to be having loose watery stools still. Otherwise, he identified that he knew he was there because of his alcohol withdrawal and when asked what he wanted to do to further manage the situation, he said he wanted to go home. I further illustrated my concern about him going home, based on his appearance, the fact that he had been in ICU for several days, and that he had not figured out how to manage his addiction at home prior. We discussed the fact that most people benefit most by engaging in some kind of ongoing treatment as a way to prevent this outcome. He continued to mumble more vehemently and aggressively, ?I want to go home?. Otherwise he was again a limited historian and still somewhat out of it. PSYCHIATRIC HISTORY: Denied. SUBSTANCE ABUSE HISTORY: Unclear as to what his history exactly has been, however when he presented, his alcohol was 83 and he had been attempting to come off of the thirty beers a day. It is my understanding that he has not had treatment otherwise. Meds Current Medications: Current Medications Generic Name Dose Route Start Last Admin Trade Name Freq PRN Reason Stop Dose Admin Albuterol/Ipratrop ium 3 ml 01/24/20 12:00 01/25/20 09:09 Duoneb INHALATION 3 ml Q4H.RESPIRATORY P RN Administration sob Amlodipine Besylat e 10 mg 01/26/20 09:00 01/26/20 08:35 Norvasc PO 10 mg DAILY RENÉ Administration Chlordiazepoxide 50 mg 01/26/20 09:30 01/27/20 00:47 Librium PO 50 mg Q8H RENÉ Administration Enoxaparin Sodium 40 mg 01/19/20 09:00 01/26/20 08:31 Lovenox SUBCUT 40 mg DAILY RENÉ Administration Famotidine 20 mg 01/25/20 18:00 01/26/20 15:28 Pepcid Tab PO 20 mg BID RENÉ Administration Folic Acid 1 mg 01/19/20 09:00 01/26/20 08:34 Folic Acid PO 1 mg DAILY RENÉ Administration Gabapentin 300 mg 01/25/20 18:00 01/26/20 15:24 Neurontin PO 300 mg BID RENÉ Administration Haloperidol Lactat e 1 mg 01/25/20 14:41 01/27/20 05:52 Haldol Inj IVP 1 mg Q2H PRN Administration AGITATION Hydralazine HCl 10 mg 01/21/20 09:28 01/26/20 00:12 Apresoline IVP 10 mg Q4H PRN Administration SBP>180 Potassium Chloride /Dextrose/Sod Cl 20 meq in 1,000 m ls @ 30 mls/hr 01/26/20 13:45 01/26/20 14:43 Dextrose 5%-Ns + Kcl 20 IV 30 mls/hr .Q24H RENÉ Administration Metoprolol Tartrat e 25 mg 01/25/20 14:45 01/26/20 15:24 Lopressor PO 25 mg BID RENÉ Administration Morphine Sulfate 2 mg 01/24/20 09:47 01/27/20 01:35 Morphine IVP 2 mg Q4H PRN Administration SEVERE PAIN Multivitamins Ther apeutic 1 tab 01/19/20 09:00 01/26/20 08:34 Multivitamin Tab PO 1 tab DAILY RENÉ Administration Nicotine 1 patch 01/20/20 03:15 01/26/20 08:30 Nicoderm 21 Mg P atch TRANSDERMA 1 patch DAILY RENÉ Administration Olanzapine 15 mg 01/25/20 21:00 01/26/20 20:43 Zyprexa PO 15 mg BEDTIME RENÉ Administration Vancomycin HCl 125 mg 01/19/20 18:00 01/26/20 21:28 Vancocin PO Not Given QID RENÉ PFSH NPU PFSH: Medical History Alcohol abuse Smoker Surgical History (Updated 01/18/20 @ 21:41 by Kandace Corona MD) H/O hand surgery Family History (Updated 01/18/20 @ 21:41 by Kandace Corona MD) Denies family history of Diabetes Lung disease Hypertension Social History (Updated 01/18/20 @ 21:42 by Kandace Corona MD) Smoking and tobacco status: heavy tobacco smoker cigarettes [ Other cigarette details: 2 packs/day for last 30 years ] Alcohol intake: current Alcohol type: beer Household members: family Housing: House Mental Status Exam MSE Comments: This is an underweight, white male, with limited dress, disheveled, and limited eye contact. No abnormal movements except for psychomotor retardation and being very tremulous. His attempts to walk to the commode needed two-person assistance, and significant direction and urging for him to be able to take steps showing great ataxia and instability. Semi- cooperative with exam in mild distress. Speech was decreased rate and volume, dysarthric with mumbling. Mood not answered; affect irritable. Thought process, linear. Thought content: patient denied lethality, suicidal or homicidal ideation, there were no delusions reported, but he is having some paranoia. He is endorsing auditory and visual hallucinations, as he is asking about things that are not there and reporting hearing things. Attention and concentration are impaired. Memory is unreliable but none were formally tested. He is alert and oriented times person and place. Insight and judgment are impaired. Impulse control is impaired. Vitals/I&O/Wt Last Vital Signs Temp 98.4 F 01/26/20 16:00 Pulse 115 H 01/27/20 06:00 Resp 22 H 01/27/20 01:35 BP 175/91 01/27/20 06:00 Pulse Ox 97 01/27/20 06:00 01/26/20 01/26/20 01/27/20 14:59 22:59 06:59 Intake Total 700 / 700 200 / 900 Output Total 800 / 800 300 / 1100 Balance -100 / -100 -100 / -200 Physical Exam Urinary Catheter Management^: Poole: Cath Placed During This Visit: yes, but has since been removed by the nurse Reason for Continuing Indwelling Catheter: Accurate Measurement of Urinary Output in Critically Ill Patients Urinary Catheter Date of Insertion: 01/22/20 Date Urinary Catheter Removed: 01/25/20 Time Urinary Catheter Discontinued: 13:37 A&P Additional A&P Information This is a 44 year old, white male, with alcohol use disorder, severe, currently in active withdrawal with agitation and denying a desire for ongoing treatment. Continue current medication. I would continue to taper the Librium as indicated. Continue with the Zyprexa qhs and give the Haldol as needed. If as he is medically able to come off of the Librium, he is having agitation that we believe is not predicated on his withdrawal, but related to some underlying psychiatric disorder, it would be appropriate to consider 96-hour hold. Clearly, he is medically compromised and is not in a position to make informed consent. We will continue to follow and see if there is a point where inpatient psychiatric care is needed. Based on the information from the collateral sources, he seems to be an appropriate candidate for inpatient rehab. Continue one to one. Attestations NPU Medical Necessity Statement*: N/A. Defer to the inpatient team/ICU team for definitive information on medical necessity. However, the patient is not cleared enough to have a sense of whether or not inpatient psychiatric care is needed, and clearly inpatient drug and alcohol rehabilitation services would be a positive thing in his treatment. Coding Level of Care Code Acute It Systems Analyst for [facility]
[2020-01-26] MEDS: dextrose 5%-ns + KCl 20 20 MEQ/1,000 ML BAG 30 MEQ IV (14:43)
[2020-01-26] MEDS: folic acid 1 MG, multivitamin inj 10 ML, thiamine 100 MG in sodium chloride 0.9% 1,000 ML 252.8 MG IV (14:43)
--- NOTE | 2020-01-26 16:17 | PC.NURSE ---
AROUND 1400 PATIENTWAS ADAMENT THAT HE WAS GOING HOME. NO AMOUNT OF LOGIC, DISTRACTION, OR EVEN SECURITY TALKING TO HIM WOULD SETTLE HIM DOWN. HE TRIED NON STOP TO EXIT HIS CHAIR ALTHOUGH HE COULD NOT STAND ON HIS OWN. HE STATED HE WILL STAY HERE TILL TOMORROW BUT HE WANTED UP TO THE BED. I WAS ALONE AT THE TIME AND COULD NOT SAFELY TRANSFER HIM HE DOESNT MOVE HIS FEET. HE DEMANDED TO GO TO THE BED. I SAID HE COULD NOT STAND AND WALK SO HE WOULD HAVE TO WAIT, HE INSISTED HE COULD DO IT. I LET HIM STAND NEXT TO THE BED AND HE DOVE INTO THE BED, NOT TURNED AND SEATED HIMSELF. ONCE IN THE BED HE DEMANDED TO GO BACK TO THE CHAIR. HIS SITTER WAS IN TEARS AND NEEDED A BREAK. THE DOCTOR HAD BEEN CALLED BUT ONLY HALDOL 1 COULD BE GIVEN. HE HAS HAD THAT 2X NOW. HE REMAINS OBSTINANT AND UNCOOPERATIVE. HIS CALLED FOR AN UPDATE . I HELPED HER TO SPEAK TO HIM BY CELL PHONE . IT HELPED WHILE HE HELD THE PHONE BUT THEN HE WANTED TO SIT UP ON THE SIDE OF THE BED. WE ALLOWED THAT SITTING VERY CLOSE INFRONT OF HIM AND THEN HE ASKED TO LAY DOWN. HE DID AND THEN HE THOUGHT HIS BIKE WAS AT THE END OF THE BED. DR TIDWELL AWARE. IN AN EFFORT TO KEEP FROM OVER SEDATING AND GOING BACKWARDS WE WILL PREVAIL AND WORK WITH HIM TILL HE TIRES OUT. HE IS USING FULL SENTANCES, BUT DOES NOT REMEMBER THAT HE IS WEAK.
[2020-01-26 17:17] LABS: Glucose Point of Care 92 mg/dL (70-110)
--- NOTE | 2020-01-26 19:11 | PC.NURSE ---
1800 patient attempted to get up to go smoke, pulled out his iv in the r ac and tried over and over doing situps but not able to get up. we got a floor mat and and let him show us how well he walks and then if he can walk he could go home. he stood bent over grabbed the bed and the chair and pivoted to the chair, very unsteady. his backside was guided to the chair.
[2020-01-26] MEDS: OLANZapine 5 mg TABLET 15 MG PO (20:43)
--- NOTE | 2020-01-26 21:21 | PC.NURSE ---
patient has been pulling at lines and dressings attempting to get out of bed. not following safety instructions. he also continues to kick at and pinch and hit staff while shouting curse words. he keeps asking for shots of whisky and beers and gets agitated when instructing him that they are not allowed. will continue to monitor
[2020-01-27] VITALS (24 sets, daily range): BP systolic 122–175; BP diastolic 63–110; PULSE 75–115; RESP 16–22; TEMP 36.2–36.8; O2SAT 91–99
[2020-01-27] MEDS: chlordiazePOXIDE 25 mg Capsule 50 MG PO ×3 (00:47→17:31)
[2020-01-27] MEDS: haloperidol inj 5 mg/mL INJ 1 mL 1 MG IVP ×3 (01:06→08:18)
[2020-01-27] MEDS: morphine 4 mg/mL SDV 1 mL 2 MG IVP ×2 (01:35→08:16)
[2020-01-27 05:08] LABS: Basophils # 0.1 10^3/uL (0.0-0.1); Basophils % 0.8 %; Eosinophils % 0.6 %; Hematocrit 38.4 % (42.0-52.0); Hemoglobin 12.4 g/dL (11.7-16.6); Lymphocytes # 1.4 10^3/uL (0.8-4.8); Lymphocytes % 20.4 %; Mean Corpuscular HGB Conc 32.3 g/dL (30.0-36.0); Mean Corpuscular Hemoglobin 31.8 pg (28.0-34.0); Mean Corpuscular Volume 98.5 fL (80-94); Monocytes # 1.3 10^3/uL (0.2-0.9); Monocytes % 19.2 %; Neutrophils # 3.8 10^3/uL (1.8-7.7); Nucleated Red Blood Cells % 0 %; Platelet Count 329 10^3/cmm (130-400); Red Cell Distribution Width 12.1 % (12.1-15.1); White Blood Count 6.6 10^3/uL (4.0-10.0)
[2020-01-27 05:37] LABS: Alanine Aminotransferase 22 U/L (0-41); Albumin Level 3.1 g/dL (3.5-5.2); Alkaline Phosphatase 60 IU/L (40-130); Anion Gap 16.4 (5-19); Aspartate Amino Transferase 29 U/L (0-40); Blood Urea Nitrogen 3 mg/dL (6-20); Calcium 9.4 mg/dL (8.5-10.5); Carbon Dioxide 25 mmol/L (22-29); Chloride 104 mmol/L (98-107); Globulin 3.3 g/dL (1.3-4.6); Glomerular Filtration Rate 146.4 mL/min (90-130); Glucose 107 mg/dL (65-115); Osmolality Calculated 290 mOsm/kg (285-295); Potassium 3.4 mmol/L (3.5-5.1); Sodium 142 mmol/L (136-145); Total Bilirubin 0.4 mg/dL (0.15-1.2); Total Protein 6.4 g/dL (6.6-8.7)
[2020-01-27 05:38] LABS: Ammonia 18 umol/L (16-60)
[2020-01-27] MEDS: amlodipine 5 mg Tablet 10 MG PO (08:16)
[2020-01-27] MEDS: metoprolol tartrate 25 mg Tablet PO ×2 (08:16→17:31)
[2020-01-27] MEDS: famotidine 20 mg Tablet PO ×2 (08:16→17:32)
[2020-01-27] MEDS: enoxaparin 40 mg/0.4 mL Syringe SUBCUT (08:18)
[2020-01-27] MEDS: multivitamin therapeutic Tablet 1 TAB PO (08:18)
[2020-01-27] MEDS: folic acid 1 mg Tablet PO (08:18)
[2020-01-27] MEDS: gabapentin 300 mg Capsule PO ×2 (08:18→17:32)
[2020-01-27] MEDS: nicotine 21 mg Patch 1 PATCH TRANSDERMA (08:19)
[2020-01-27 08:59] LABS: Glucose Point of Care 99 mg/dL (70-110)
[2020-01-27 13:20] LABS: Glucose Point of Care 136 mg/dL (70-110)
[2020-01-27] MEDS: hyDRALAzine 20 mg/mL INJ 1 mL 10 MG IVP (13:30)
[2020-01-27] MEDS: dextrose 5%-ns + KCl 20 20 MEQ/1,000 ML BAG 30 MEQ IV (13:46)
--- NOTE | 2020-01-27 14:09 | PC.NURSE ---
MR RALPH WAS UP ALL NIGHT AND MORNING. KICKING HIS LEGS OVER THE RAILS TRYING TO GO SMOKE. HE WAS GIVEN HALDOL MORPHINE AND HIS SCHEDUALLED MEDS. ASSSITED TO EAT HIS BREAKFAST AND THEN PHYSICAL THERAPY CAME . HE WAS MOSTLY A TOTAL LIFT TO THE [facility] [place], AND CHAIR BUT HE RECIEVED A DEEP BATH FROM HEAD TO TOE. WAS GIVEN A SHIRT TO WEAR INSTEAD OF A GOWN AND HIS PULL UP HE LIKES TO WEAR PANTS. HE GOT COMFORTABLE TIN THE LOUNGING CHAIR AND FELL ASLEEP, HE HAS STAYED ASLEEP SINCE 10 AM SO NEARLY 4 HRS AT THIS TIME. NO FURTHER SEDATION HAS BEEN GIVEN BUT HE AWOKE FOR HIS VANCO AND RETURNED TO SLEEP . SITTER AT BEDSIDE.
[2020-01-27 17:18] LABS: Glucose Point of Care 99 mg/dL (70-110)
--- NOTE | 2020-01-27 17:24 | P.PN_ITS ---
Subjective Subjective: Interval history: No acute events overnight. Patient is a lot more calm today morning. He has had 2 or 3 episodes of agitation. Overall he is received on 10 mg of Haldol along with Librium 50 mg 3 times a day. He has had episodes of hallucination. During his agitation he has been will be destructive nurses and staff as well. Vitals/I&O/Wt Last Vital Signs Temp 97.2 F L 01/27/20 13:00 Pulse 86 01/27/20 16:00 Resp 17 01/27/20 16:00 BP 122/63 01/27/20 15:00 Pulse Ox 97 01/27/20 15:00 01/27/20 01/27/20 01/27/20 06:59 14:59 22:59 Intake Total 1241.5 / 1241.5 Balance 1241.5 / 1241.5 Physical Exam Narrative: EXAM NARRATIVE: General: AO x3, jittery, tremulous, CIWA?7 HEENT: PERRLA, pupils bilaterally equal and reactive Chest: Normal vesicular breath sounds, no added sounds, equal good air entry bilaterally CVS: S1-S2 regular, no murmurs, tachycardia, no gallops, no rubs Abdomen: Soft, nontender, no organomegaly, bowel sounds present Neuro: Moving all 4 limbs, pupils bilaterally equal and reactive, no facial deformity During examination as an episode of hallucination anti-inflammatories home sit ting on his couch. Urinary Catheter Management^: Poole: Cath Placed During This Visit: yes, but has since been removed by the nurse Reason for Continuing Indwelling Catheter: Decision to DC Catheter Urinary Catheter Date of Insertion: 01/22/20 Date Urinary Catheter Removed: 01/25/20 Time Urinary Catheter Discontinued: 13:37 Data : 01/27/20 04:20 01/27/20 04:20 A&P Assessment and plan (1) Wernicke encephalopathy: Status: Acute (2) Alcohol dependence with withdrawal: Status: Acute (3) C. difficile colitis: Status: Acute (4) Aspiration pneumonia: Status: Acute (5) Alcohol abuse: -HIV negative, hepatitis panel negative, liver ultrasound shows hepatomegaly with moderate hepatic steatosis, INR 0.88, repeat electrolytes Status: Acute (6) Thrombocytopenia: Due to liver disease, likely secondary to alcohol Improving. Continue to Monitor Status: Acute (7) Hypertensive urgency: Status: Acute (8) Hypokalemia: Status: Acute (9) Hyponatremia: -Sodium 139 Status: Acute (10) Tachycardia: Status: Acute Additional A&P Information Alcohol abuse: Alcohol withdrawal/delirium tremens: Extubated on January 22. Maintaining airway. Because of continued confusion, ataxia and chronic alcoholism Wernicke's encephalopathy is of high chance. CT head done on admission was negative for any ventriculomegaly. Patient has remained afebrile does not have any hypothermia, denies of having any photophobia, neck stiffness. Chances of meningitis/encephalitis are low. Patient is on day 10 of admission so is out of the window of alcohol withdrawal. Decrease Librium to 50 every 12 hourly. Haldol IV as needed every 2 hours. Continue with gabapentin 3 mg twice daily and Zyprexa 15 mg oral at bedtime. We will try to discuss his care with psychiatry for a possible 96-hour hold for safe discharge. Patient most likely need transfer to neuropsychiatry unit for further treatment. For possible Wernicke's encephalopathy: Continue IV thiamine for 4 more days after that oral thiamine. Continue with oral folic acid. We will monitor blood sugars. If following we will start him on D5. We will start patient on hypoglycemia protocol. Check blood sugars before meals and at bedtime. We will try to avoid use of any further IV Ativan or Precedex. Hypertension: Blood pressure better controlled. Continue with amlodipine 10 mg daily, Lopressor 25 mg twice daily C. difficile colitis: Continue with vancomycin 125 mg every 6 hourly. Day 9 /14 of treatment. Aspiration pneumonia: No leukocytosis anymore, Afebrile Completed course of Abx. Lovenox for DVT prophylaxis Regular diet Pepcid for PUD prophylaxis Full code Continue with one-to-one sitter. 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 difficile colitis A04.72 Aspiration pneumonia J69.0 Alcohol abuse F10.10 Thrombocytopenia D69.6 Hypertensive urgency I16.0 Hypokalemia E87.6 Hyponatremia E87.1 Tachycardia R00.0
--- NOTE | 2020-01-27 17:33 | PM.NPN ---
Subjective NPU Subjective: Interval history: Asked to see the patient today with a view to transfer to the psychiatry unit. He is now able, after 48 hours of wakefulness and agitation, to sleep as of this afternoon. Metabolic parameters are stabilizing and he is safer after 9 days of skilled hospitalist care in the intensive care unit. He still thinks he went walking around the cafeteria (closed because of COVID19) and does not remember his 9 days of detox. His withdrawal will continue. But he is medically stable, in the opinion of the hospitalist, for transfer to psychiatry. Medications: Reviewed: Yes Medication Review Details: Current Medications Albuterol/Ipratropium (Duoneb) 3 ml INHALATION Q4H.RESPIRATORY PRN PRN Reason: sob Last Admin: 01/25/20 09:09 Dose: 3 ml Documented by: Amlodipine Besylate (Norvasc) 10 mg PO DAILY [facility] Last Admin: 01/27/20 08:16 Dose: 10 mg Documented by: Chlordiazepoxide (Librium) 50 mg PO Q12H [facility] Last Admin: 01/27/20 17:31 Dose: 50 mg Documented by: Dextrose (D50w) 25 ml IVP ONCE PRN; Protocol PRN Reason: hypoglycemia protocol Dextrose (D50w) 50 ml IVP PRN PRN; Protocol PRN Reason: hypoglycemia protocol Enoxaparin Sodium (Lovenox) 40 mg SUBCUT DAILY [facility] Last Admin: 01/27/20 08:18 Dose: 40 mg Documented by: Famotidine (Pepcid Tab) 20 mg PO BID [facility] Last Admin: 01/27/20 17:32 Dose: 20 mg Documented by: Folic Acid (Folic Acid) 1 mg PO DAILY [facility] Last Admin: 01/27/20 08:18 Dose: 1 mg Documented by: Gabapentin (Neurontin) 300 mg PO BID [facility] Last Admin: 01/27/20 17:32 Dose: 300 mg Documented by: Glucagon (Glucagen) 1 mg IM ONCE PRN; Protocol PRN Reason: Adult Acute Hypoglycemia Prot. Haloperidol Lactate (Haldol Inj) 2 mg IVP Q2H PRN PRN Reason: AGITATION Hydralazine HCl (Apresoline) 10 mg IVP Q4H PRN PRN Reason: SBP>180 Last Admin: 01/27/20 13:30 Dose: 10 mg Documented by: Potassium Chloride/Dextrose/Sod Cl (Dextrose 5%-Ns + Kcl 20) 20 meq in 1,000 mls @ 30 mls/hr IV .Q24H [facility] Last Admin: 01/27/20 13:46 Dose: 30 mls/hr Documented by: Dextrose (D5w) 500 mls @ 100 mls/hr IV ONCE PRN; Protocol PRN Reason: Adult Acute Hypoglycemia Prot Metoprolol Tartrate (Lopressor) 25 mg PO BID [facility] Last Admin: 01/27/20 17:31 Dose: 25 mg Documented by: Morphine Sulfate (Morphine) 2 mg IVP Q4H PRN PRN Reason: SEVERE PAIN Last Admin: 01/27/20 08:16 Dose: 2 mg Documented by: Multivitamins Therapeutic (Multivitamin Tab) 1 tab PO DAILY [facility] Last Admin: 01/27/20 08:18 Dose: 1 tab Documented by: Nicotine (Nicoderm 21 Mg Patch) 1 patch TRANSDERMA DAILY [facility] Last Admin: 01/27/20 08:19 Dose: 1 patch Documented by: Olanzapine (Zyprexa) 15 mg PO BEDTIME [facility] Last Admin: 01/26/20 20:43 Dose: 15 mg Documented by: Thiamine HCl (Vitamin B-1) 250 mg IV DAILY [facility] Stop: 01/31/20 10:00 Last Admin: 01/27/20 08:17 Dose: 250 mg Documented by: Thiamine Mononitrate (Vitamin B-1) 100 mg PO DAILY [facility] Vancomycin HCl (Vancocin) 125 mg PO QID [facility] Stop: 02/03/20 00:00 Last Admin: 01/27/20 17:32 Dose: 125 mg Documented by: Mental Status Exam MSE Comments: (When awake) this is an underweight, white male, with limited dress, disheveled, and limited eye contact. No abnormal movements except for psychomotor retardation and being very tremulous. His attempts to walk to the commode needed two-person assistance, and significant direction and urging for him to be able to take steps showing great ataxia and instability. Semi-cooperative with exam in mild distress. Speech was decreased rate and volume, dysarthric with mumbling. Mood not answered; affect irritable. Thought process, linear and free of blocking, racing or looseness of association. Thought content: patient denied lethality, suicidal or homicidal ideation, there were no delusions reported, but he is having some paranoia. He is endorsing auditory and visual hallucinations, as he is asking about things that are not there and reporting hearing things. Attention and concentration are impaired. Memory is unreliable but none were formally tested. Insight and judgment are impaired. Impulse control is impaired. Vitals/I&O/Wt Last Vital Signs Temp 97.2 F L 01/27/20 13:00 Pulse 86 01/27/20 17:00 Resp 17 01/27/20 17:00 BP 122/63 01/27/20 17:00 Pulse Ox 97 01/27/20 15:00 01/27/20 01/27/20 01/27/20 07:59 15:59 23:59 Intake Total 1241.5 280 Balance 1241.5 280 Physical Exam Urinary Catheter Management^: Poole: Cath Placed During This Visit: yes, but has since been removed by the nurse Reason for Continuing Indwelling Catheter: Decision to DC Catheter Urinary Catheter Date of Insertion: 01/22/20 Date Urinary Catheter Removed: 01/25/20 Time Urinary Catheter Discontinued: 13:37 Data NPU : 01/27/20 04:20 01/27/20 04:20 A&P Assessment and plan (1) Wernicke encephalopathy: The patient is receiving thiamine. Status: Acute (2) Alcohol dependence with withdrawal: 9 days of intensive care plus structured withdrawal. Status: Acute (3) Delirium tremens: Medical management has been adequate so far. Status: Acute Involuntary Hold Information 96 Hour Hold: 96 Hour Involuntary Admission: Yes 96 Hour Hold Start Date: 01/27/20 96 Hour Hold Start Time: 17:49 96 Hour Hold Ending Date: 02/02/20 96 Hour Hold Ending Time: 17:49 Attestations NPU Medical Necessity Statement*: I anticipate 5-7 midnights hospitalization. Time Spent in Patient Care: Greater than 35 minutes (>than 50% of time spent in counselling and/or direct pt care on unit). I executed an application as well as an affidavit to secure this patient's involuntary hospitalization. I have consulted with the nursing staff in the ICU as well as with the hospitalist. 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
--- NOTE | 2020-01-27 18:52 | PC.NURSE ---
DR FERREIRA SAW THE PATIENT AROUND 1400 AND WE DISCUSSED HIS BEHAVIOR AND LACK OF SLEEP FOR THE LAST 48 HRS. PATIENT RELAXED AFTER HIS BATH AND PT AT 1000 AND WOULD AWAKEN AND FOLLOW SIMPLE DIRECTIONS LIKE OPEN MOUTH AND EAT HIS APPLESAUCE BUT WOULD GO STRAIGHT TO SLEEP. VITALS REMAINED WNL, HIS WAS UPDATED ON HIS CONDITION JUST PRIOR TO HIS ORDERS FOR TRANSFER. HIS SITTER REMAINS AT BEDSIDE.
--- NOTE | 2020-01-27 18:57 | PC.NURSE ---
HIS IV WAS REMOVED FROM HIS RIGHT WRIST AT 1745 . IT WAS COMPLETE . PRESSURE DRESSING APPLIED. PATIENT HAD NOT VOIDED SINCE 0600. HE IS CAPABLE OF HOLDING IT FOR UP TO 900 CC AT A TIME WHEN MORE COHERENT.
--- NOTE | 2020-01-27 22:35 | PC.NURSE ---
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 Notified Dr. Rhodes of patient condition. Dr. Rhodes wants to call warehouse distribution specialist and discuss patient status and see if we can get a bed on the Medical Surgical floor. sewer maintenance supervisor called back and notified that Dr. Corona will come and access patient when he completes his admissions.
[2020-01-28 03:17] VITALS: BP 133/80; PULSE 100; RESP 16; TEMP 36.8; O2SAT 95
[2020-01-28] MEDS: OLANZapine 5 mg TABLET 15 MG PO ×2 (03:28→21:56)
[2020-01-28] MEDS: chlordiazePOXIDE 25 mg Capsule 50 MG PO ×2 (05:51→17:57)
[2020-01-28 06:00] VITALS: BP 141/89; PULSE 89; RESP 17; TEMP 36.8; O2SAT 95
--- NOTE | 2020-01-28 06:24 | PC.NURSE ---
Dr. Corona came to floor around 2354 and evaluated patient, Dr. Corona believes patient is sleeping off medication and this state is also close to his baseline, Dr. Corona states he is stable for this floor
[2020-01-28] MEDS: metoprolol tartrate 25 mg Tablet PO ×2 (09:10→17:57)
[2020-01-28] MEDS: amlodipine 5 mg Tablet 10 MG PO (09:11)
[2020-01-28] MEDS: nicotine 21 mg Patch 1 PATCH TRANSDERMA (09:20)
[2020-01-28] MEDS: enoxaparin 40 mg/0.4 mL Syringe SUBCUT (09:20)
[2020-01-28] MEDS: folic acid 1 mg Tablet PO (09:21)
[2020-01-28] MEDS: gabapentin 300 mg Capsule PO ×2 (09:21→17:56)
[2020-01-28] MEDS: famotidine 20 mg Tablet PO ×2 (09:21→17:57)
[2020-01-28] MEDS: thiamine 100 mg Tablet PO (09:21)
[2020-01-28] MEDS: multivitamin therapeutic Tablet 1 TAB PO (09:21)
--- NOTE | 2020-01-28 12:02 | P.PN_ITS ---
Subjective NPU Subjective: Interval history: The patient is now ensconced in a hospital bed across from the nursing station. He slept very deeply, wet the bed and was a great concern for the charge nurse. We contacted the housesmith, who had Dr. Cotto, who had admitted him originally to the ICU, reevaluate him in the dark of night. He felt that the patient was at baseline and that he would be safe on our unit. Indeed, the patient today is arousable. He makes coherent and logical responses to questions. Speech is soft but can be understood. He is able to sit up, drink water and take his medicines. A brief neurological exam yields no deficits. The nursing staff is reassured and we will proceed from this tessy, hopefully to transfer to an inpatient rehab program when he is well enough to engage in such. Medications: Reviewed: Yes Medication Review Details: Current Medications Acetaminophen (Tylenol) 650 mg PO Q4H PRN PRN Reason: MILD PAIN Albuterol/Ipratropium (Duoneb) 3 ml INHALATION Q4H.RESPIRATORY PRN PRN Reason: sob Last Admin: 01/25/20 09:09 Dose: 3 ml Documented by: Amlodipine Besylate (Norvasc) 10 mg PO DAILY [facility] Last Admin: 01/28/20 09:11 Dose: 10 mg Documented by: Benztropine Mesylate (Cogentin) 1 mg PO BID PRN PRN Reason: Mild Extrapyramidal symptoms Camphor/Menthol/Phenol (Blistex) 1 applic TOPICAL Q1H PRN PRN Reason: DRYNESS Chlordiazepoxide (Librium) 50 mg PO Q12H [facility] Last Admin: 01/28/20 05:51 Dose: 50 mg Documented by: Dextrose (D50w) 25 ml IVP ONCE PRN; Protocol PRN Reason: hypoglycemia protocol Dextrose (D50w) 50 ml IVP PRN PRN; Protocol PRN Reason: hypoglycemia protocol Diphenhydramine HCl (Benadryl) 50 mg IM ONCE PRN PRN Reason: Severe Extrapyramidal Symptoms Diphenhydramine HCl (Benadryl) 50 mg IM Q4H PRN PRN Reason: Severe Aggression Enoxaparin Sodium (Lovenox) 40 mg SUBCUT DAILY [facility] Last Admin: 01/28/20 09:20 Dose: 40 mg Documented by: Famotidine (Pepcid Tab) 20 mg PO BID [facility] Last Admin: 01/28/20 09:21 Dose: 20 mg Documented by: Folic Acid (Folic Acid) 1 mg PO DAILY [facility] Last Admin: 01/28/20 09:21 Dose: 1 mg Documented by: Gabapentin (Neurontin) 300 mg PO BID [facility] Last Admin: 01/28/20 09:21 Dose: 300 mg Documented by: Glucagon (Glucagen) 1 mg IM ONCE PRN; Protocol PRN Reason: Adult Acute Hypoglycemia Prot. Haloperidol (Haldol) 5 mg PO Q4H PRN PRN Reason: AGITATION Haloperidol Lactate (Haldol Inj) 2 mg IVP Q2H PRN PRN Reason: AGITATION Haloperidol Lactate (Haldol Inj) 5 mg IM Q4H PRN PRN Reason: Severe Aggression Hydralazine HCl (Apresoline) 10 mg IVP Q4H PRN PRN Reason: SBP>180 Last Admin: 01/27/20 13:30 Dose: 10 mg Documented by: Hydroxyzine Pamoate (Vistaril) 50 mg PO Q6H PRN PRN Reason: ANXIETY Potassium Chloride/Dextrose/Sod Cl (Dextrose 5%-Ns + Kcl 20) 20 meq in 1,000 mls @ 30 mls/hr IV .Q24H [facility] Last Admin: 01/27/20 13:46 Dose: 30 mls/hr Documented by: Dextrose (D5w) 500 mls @ 100 mls/hr IV ONCE PRN; Protocol PRN Reason: Adult Acute Hypoglycemia Prot Loperamide HCl (Imodium Capsule) 2 mg PO Q6H PRN PRN Reason: DIARRHEA Lorazepam (Ativan) 2 mg IM Q4H PRN PRN Reason: Severe Aggression Metoprolol Tartrate (Lopressor) 25 mg PO BID [facility] Last Admin: 01/28/20 09:10 Dose: 25 mg Documented by: Morphine Sulfate (Morphine) 2 mg IVP Q4H PRN PRN Reason: SEVERE PAIN Last Admin: 01/27/20 08:16 Dose: 2 mg Documented by: Multivitamins Therapeutic (Multivitamin Tab) 1 tab PO DAILY [facility] Last Admin: 01/28/20 09:21 Dose: 1 tab Documented by: Nicotine (Nicoderm 21 Mg Patch) 1 patch TRANSDERMA DAILY [facility] Last Admin: 01/28/20 09:20 Dose: 1 patch Documented by: Nicotine Polacrilex (Nicorette) 2 mg BUCCAL Q2H PRN PRN Reason: NICOTINE WITHDRAWAL Olanzapine (Zyprexa) 15 mg PO BEDTIME [facility] Last Admin: 01/28/20 03:28 Dose: 15 mg Documented by: Olanzapine (Zyprexa Zydis) 5 mg PO Q4H PRN PRN Reason: Agitation/Psychosis Ondansetron HCl (Zofran) 4 mg PO Q6H PRN PRN Reason: NAUSEA AND VOMITING Thiamine Mononitrate (Vitamin B-1) 100 mg PO DAILY [facility] Last Admin: 01/28/20 09:21 Dose: 100 mg Documented by: Trazodone HCl (Desyrel) 50 mg PO BEDTIME PRN PRN Reason: SLEEP Vancomycin HCl (Vancocin) 125 mg PO QID [facility] Stop: 02/03/20 00:00 Last Admin: 01/28/20 09:29 Dose: 125 mg Documented by: Mental Status Exam MSE Comments: The patient is soft-spoken and does not have much to say. He is a little malodorous and disheveled but he is competent, breathing and alive. Mood is somewhat numb, as is his affect. Thought processes appear to be logical and coherent. There is not much thought process in evidence now but I find no evidence of blocking, racing or disorganization. There is no evidence of hallu cinations, delusions or ideas of reference. Cognitive functions seem to be modestly intact. How much insight and judgment he has remains to be seen. He was never suicidal or homicidal. Vitals/I&O/Wt Last Vital Signs Temp 98.2 F 01/28/20 06:00 Pulse 89 01/28/20 06:00 Resp 17 01/28/20 06:00 BP 141/89 01/28/20 06:00 Pulse Ox 95 01/28/20 06:00 01/27/20 01/28/20 01/28/20 23:59 07:59 15:59 Intake Total 280 Balance 280 Physical Exam Urinary Catheter Management^: Poole: Cath Placed During This Visit: yes, but has since been removed by the nurse Reason for Continuing Indwelling Catheter: Decision to DC Catheter Urinary Catheter Date of Insertion: 01/22/20 Date Urinary Catheter Removed: 01/25/20 Time Urinary Catheter Discontinued: 13:37 Data NPU : 01/27/20 04:20 01/27/20 04:20 Involuntary Hold Information 96 Hour Hold: 96 Hour Involuntary Admission: Yes 96 Hour Hold Start Date: 01/27/20 96 Hour Hold Start Time: 17:49 96 Hour Hold Ending Date: 02/02/20 96 Hour Hold Ending Time: 17:49 Attestations NPU Medical Necessity Statement*: I anticipate 5-10 additional nights hospitalization. Time Spent in Patient Care: Greater than 35 minutes (>than 50% of time spent in counselling and/or direct pt care on unit) . Neurological exam, and interview of the patient. Mental status. Consultation with nursing staff. 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
[2020-01-28 14:00] VITALS: BP 108/68; PULSE 94; RESP 18; TEMP 37.9; O2SAT 97
[2020-01-28] MEDS: acetaminophen 325 mg Tablet 650 MG PO ×2 (15:26→21:56)
[2020-01-28 21:15] VITALS: PULSE 103; RESP 18; O2SAT 96
[2020-01-28 22:00] VITALS: BP 102/66; PULSE 100; RESP 17; TEMP 36.8; O2SAT 93
[2020-01-29 06:00] VITALS: BP 115/81; PULSE 103; RESP 18; TEMP 37.2; O2SAT 97
[2020-01-29] MEDS: chlordiazePOXIDE 25 mg Capsule 50 MG PO ×2 (06:25→18:31)
[2020-01-29] MEDS: multivitamin therapeutic Tablet 1 TAB PO (08:51)
[2020-01-29] MEDS: amlodipine 5 mg Tablet 10 MG PO (08:51)
[2020-01-29] MEDS: famotidine 20 mg Tablet PO (08:52)
[2020-01-29] MEDS: thiamine 100 mg Tablet PO (08:52)
[2020-01-29] MEDS: metoprolol tartrate 25 mg Tablet PO ×2 (08:52→18:30)
[2020-01-29] MEDS: nicotine 21 mg Patch 1 PATCH TRANSDERMA (08:53)
[2020-01-29] MEDS: folic acid 1 mg Tablet PO (08:53)
[2020-01-29] MEDS: gabapentin 300 mg Capsule PO ×2 (08:53→18:31)
[2020-01-29] MEDS: enoxaparin 40 mg/0.4 mL Syringe SUBCUT (08:59)
--- NOTE | 2020-01-29 09:03 | P.PN_ITS ---
Subjective NPU Subjective: Interval history: The patient is still very feeble but is sitting in a wheelchair and trying to wheel himself down the boss. He wants to sit in the day room and watch the news. Medications: Reviewed: Yes Medication Review Details: Current Medications Acetaminophen (Tylenol) 650 mg PO Q6H PRN PRN Reason: NEEDED FOR FEVER OR PAIN Last Admin: 01/28/20 21:56 Dose: 650 mg Documented by: Albuterol/Ipratropium (Duoneb) 3 ml INHALATION Q4H.RESPIRATORY PRN PRN Reason: sob Last Admin: 01/25/20 09:09 Dose: 3 ml Documented by: Amlodipine Besylate (Norvasc) 10 mg PO DAILY [facility] Last Admin: 01/29/20 08:51 Dose: 10 mg Documented by: Benztropine Mesylate (Cogentin) 1 mg PO BID PRN PRN Reason: Mild Extrapyramidal symptoms Camphor/Menthol/Phenol (Blistex) 1 applic TOPICAL Q1H PRN PRN Reason: DRYNESS Chlordiazepoxide (Librium) 50 mg PO Q12H [facility] Last Admin: 01/29/20 06:25 Dose: 50 mg Documented by: Dextrose (D50w) 25 ml IVP ONCE PRN; Protocol PRN Reason: hypoglycemia protocol Dextrose (D50w) 50 ml IVP PRN PRN; Protocol PRN Reason: hypoglycemia protocol Diphenhydramine HCl (Benadryl) 50 mg IM ONCE PRN PRN Reason: Severe Extrapyramidal Symptoms Diphenhydramine HCl (Benadryl) 50 mg IM Q4H PRN PRN Reason: Severe Aggression Enoxaparin Sodium (Lovenox) 40 mg SUBCUT DAILY [facility] Last Admin: 01/29/20 08:59 Dose: 40 mg Documented by: Famotidine (Pepcid Tab) 20 mg PO BID [facility] Last Admin: 01/29/20 08:52 Dose: 20 mg Documented by: Folic Acid (Folic Acid) 1 mg PO DAILY [facility] Last Admin: 01/29/20 08:53 Dose: 1 mg Documented by: Gabapentin (Neurontin) 300 mg PO BID [facility] Last Admin: 01/29/20 08:53 Dose: 300 mg Documented by: Glucagon (Glucagen) 1 mg IM ONCE PRN; Protocol PRN Reason: Adult Acute Hypoglycemia Prot. Haloperidol (Haldol) 5 mg PO Q4H PRN PRN Reason: AGITATION Haloperidol Lactate (Haldol Inj) 2 mg IVP Q2H PRN PRN Reason: AGITATION Haloperidol Lactate (Haldol Inj) 5 mg IM Q4H PRN PRN Reason: Severe Aggression Hydralazine HCl (Apresoline) 10 mg IVP Q4H PRN PRN Reason: SBP>180 Last Admin: 01/27/20 13:30 Dose: 10 mg Documented by: Hydroxyzine Pamoate (Vistaril) 50 mg PO Q6H PRN PRN Reason: ANXIETY Dextrose (D5w) 500 mls @ 100 mls/hr IV ONCE PRN; Protocol PRN Reason: Adult Acute Hypoglycemia Prot Loperamide HCl (Imodium Capsule) 2 mg PO Q6H PRN PRN Reason: DIARRHEA Lorazepam (Ativan) 2 mg IM Q4H PRN PRN Reason: Severe Aggression Metoprolol Tartrate (Lopressor) 25 mg PO BID [facility] Last Admin: 01/29/20 08:52 Dose: 25 mg Documented by: Morphine Sulfate (Morphine) 2 mg IVP Q4H PRN PRN Reason: SEVERE PAIN Last Admin: 01/27/20 08:16 Dose: 2 mg Documented by: Multivitamins Therapeutic (Multivitamin Tab) 1 tab PO DAILY [facility] Last Admin: 01/29/20 08:51 Dose: 1 tab Documented by: Nicotine (Nicoderm 21 Mg Patch) 1 patch TRANSDERMA DAILY [facility] Last Admin: 01/29/20 08:53 Dose: 1 patch Documented by: Nicotine Polacrilex (Nicorette) 2 mg BUCCAL Q2H PRN PRN Reason: NICOTINE WITHDRAWAL Olanzapine (Zyprexa) 15 mg PO BEDTIME [facility] Last Admin: 01/28/20 21:56 Dose: 15 mg Documented by: Olanzapine (Zyprexa Zydis) 5 mg PO Q4H PRN PRN Reason: Agitation/Psychosis Ondansetron HCl (Zofran) 4 mg PO Q6H PRN PRN Reason: NAUSEA AND VOMITING Thiamine Mononitrate (Vitamin B-1) 100 mg PO DAILY [facility] Last Admin: 01/29/20 08:52 Dose: 100 mg Documented by: Trazodone HCl (Desyrel) 50 mg PO BEDTIME PRN PRN Reason: SLEEP Vancomycin HCl (Vancocin) 125 mg PO QID [facility] Stop: 02/03/20 00:00 Last Admin: 01/28/20 21:55 Dose: 125 mg Documented by: Mental Status Exam MSE Comments: The patient knows where he is today. He is attempting to wheel himself down the boss in his wheelchair. He offers coherent answers and is appropriate in his behavior. He still profoundly weak and a full assessment is not yet possible but he appears to have some orientation. Insight and judgment are questionable but he may have some surviving cognitive capacity. He denies suicidal or homicidal ideation. Vitals/I&O/Wt Last Vital Signs Temp 98.9 F 01/29/20 06:00 Pulse 103 H 01/29/20 06:00 Resp 18 01/29/20 06:00 BP 115/81 01/29/20 06:00 Pulse Ox 97 01/29/20 06:00 01/28/20 01/29/20 01/29/20 23:59 07:59 15:59 Intake Total 310 Output Total 300 Balance 10 Physical Exam Urinary Catheter Management^: Poole: Cath Placed During This Visit: yes, but has since been removed by the nurse Reason for Continuing Indwelling Catheter: Decision to DC Catheter Urinary Catheter Date of Insertion: 01/22/20 Date Urinary Catheter Removed: 01/25/20 Time Urinary Catheter Discontinued: 13:37 Data NPU : 01/27/20 04:20 01/27/20 04:20 A&P Assessment and plan (1) Delirium tremens: The thiamine may have saved him. Status: Acute (2) Alcohol abuse: He is desperately in need of a recovery program Status: Acute (3) Wernicke encephalopathy: This time and may have saved him from complete dementia. Time will tell. Status: Acute Involuntary Hold Information 96 Hour Hold: 96 Hour Involuntary Admission: Yes 96 Hour Hold Start Date: 01/27/20 96 Hour Hold Start Time: 17:49 96 Hour Hold Ending Date: 02/02/20 96 Hour Hold Ending Time: 17:49 Attestations NPU Medical Necessity Statement*: This patient will be here 10-12 nights. Time Spent in Patient Care: Greater than 35 minutes (>than 50% of time spe nt in counselling and/or direct pt care on unit) . 50 minutes. 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
[2020-01-29 14:00] VITALS: BP 157/90; PULSE 83; RESP 18; TEMP 37.3
[2020-01-29] MEDS: OLANZapine 5 mg TABLET 15 MG PO (21:53)
[2020-01-29 22:00] VITALS: BP 114/72; PULSE 88; RESP 17; TEMP 37.9; O2SAT 95
[2020-01-30 06:00] VITALS: BP 127/84; PULSE 86; RESP 17; TEMP 37.2; O2SAT 95
[2020-01-30] MEDS: chlordiazePOXIDE 25 mg Capsule 50 MG PO ×2 (06:48→17:29)
--- NOTE | 2020-01-30 08:31 | P.PN_ITS ---
Subjective NPU Subjective: Interval history: The patient remains weak and often somnolent. I note that he has been on olanzapine 15 mg p.o. nightly. He can hardly stay awake now, although it must of needed it during his wildest times in the ICU. I am diminishing the nightly dose to 5 mg p.o. I see no further need for the as needed olanzapine 5 mg every 4 hours on the med list which also has Haldol as needed. We need to back away from this have a pharmacotherapy. Medications: Reviewed: Yes Medication Review Details: Current Medications Acetaminophen (Tylenol) 650 mg PO Q6H PRN PRN Reason: NEEDED FOR FEVER OR PAIN Last Admin: 01/28/20 21:56 Dose: 650 mg Documented by: Albuterol/Ipratropium (Duoneb) 3 ml INHALATION Q4H.RESPIRATORY PRN PRN Reason: sob Last Admin: 01/25/20 09:09 Dose: 3 ml Documented by: Amlodipine Besylate (Norvasc) 10 mg PO DAILY [facility] Last Admin: 01/29/20 08:51 Dose: 10 mg Documented by: Benztropine Mesylate (Cogentin) 1 mg PO BID PRN PRN Reason: Mild Extrapyramidal symptoms Camphor/Menthol/Phenol (Blistex) 1 applic TOPICAL Q1H PRN PRN Reason: DRYNESS Chlordiazepoxide (Librium) 50 mg PO Q12H [facility] Last Admin: 01/30/20 06:48 Dose: 50 mg Documented by: Dextrose (D50w) 25 ml IVP ONCE PRN; Protocol PRN Reason: hypoglycemia protocol Dextrose (D50w) 50 ml IVP PRN PRN; Protocol PRN Reason: hypoglycemia protocol Diphenhydramine HCl (Benadryl) 50 mg IM ONCE PRN PRN Reason: Severe Extrapyramidal Symptoms Diphenhydramine HCl (Benadryl) 50 mg IM Q4H PRN PRN Reason: Severe Aggression Enoxaparin Sodium (Lovenox) 40 mg SUBCUT DAILY [facility] Last Admin: 01/29/20 08:59 Dose: 40 mg Documented by: Famotidine (Pepcid Tab) 20 mg PO BID [facility] Last Admin: 01/29/20 21:54 Dose: Not Given Documented by: Folic Acid (Folic Acid) 1 mg PO DAILY [facility] Last Admin: 01/29/20 08:53 Dose: 1 mg Documented by: Gabapentin (Neurontin) 300 mg PO BID [facility] Last Admin: 01/29/20 18:31 Dose: 300 mg Documented by: Glucagon (Glucagen) 1 mg IM ONCE PRN; Protocol PRN Reason: Adult Acute Hypoglycemia Prot. Haloperidol (Haldol) 5 mg PO Q4H PRN PRN Reason: AGITATION Haloperidol Lactate (Haldol Inj) 2 mg IVP Q2H PRN PRN Reason: AGITATION Haloperidol Lactate (Haldol Inj) 5 mg IM Q4H PRN PRN Reason: Severe Aggression Hydralazine HCl (Apresoline) 10 mg IVP Q4H PRN PRN Reason: SBP>180 Last Admin: 01/27/20 13:30 Dose: 10 mg Documented by: Hydroxyzine Pamoate (Vistaril) 50 mg PO Q6H PRN PRN Reason: ANXIETY Dextrose (D5w) 500 mls @ 100 mls/hr IV ONCE PRN; Protocol PRN Reason: Adult Acute Hypoglycemia Prot Loperamide HCl (Imodium Capsule) 2 mg PO Q6H PRN PRN Reason: DIARRHEA Lorazepam (Ativan) 2 mg IM Q4H PRN PRN Reason: Severe Aggression Metoprolol Tartrate (Lopressor) 25 mg PO BID [facility] Last Admin: 01/29/20 18:30 Dose: 25 mg Documented by: Morphine Sulfate (Morphine) 2 mg IVP Q4H PRN PRN Reason: SEVERE PAIN Last Admin: 01/27/20 08:16 Dose: 2 mg Documented by: Multivitamins Therapeutic (Multivitamin Tab) 1 tab PO DAILY [facility] Last Admin: 01/29/20 08:51 Dose: 1 tab Documented by: Nicotine (Nicoderm 21 Mg Patch) 1 patch TRANSDERMA DAILY [facility] Last Admin: 01/29/20 08:53 Dose: 1 patch Documented by: Nicotine Polacrilex (Nicorette) 2 mg BUCCAL Q2H PRN PRN Reason: NICOTINE WITHDRAWAL Olanzapine (Zyprexa) 5 mg PO BEDTIME [facility] Ondansetron HCl (Zofran) 4 mg PO Q6H PRN PRN Reason: NAUSEA AND VOMITING Thiamine Mononitrate (Vitamin B-1) 100 mg PO DAILY [facility] Last Admin: 01/29/20 08:52 Dose: 100 mg Documented by: Trazodone HCl (Desyrel) 50 mg PO BEDTIME PRN PRN Reason: SLEEP Vancomycin HCl (Vancocin) 125 mg PO QID [facility] Stop: 02/03/20 00:00 Last Admin: 01/29/20 21:54 Dose: 125 mg Documented by: Mental Status Exam MSE Comments: The patient is weak but oriented. He is reasonable answers to inquiry. Thought processes are slow but coherent. Speech is very soft but free of dysarthria, aprosody or pressure. Cognitive functions are clearly fragile and insight and judgment are poor. There is no bizarre conduct or agitation. Vitals/I&O/Wt Last Vital Signs Temp 99.0 F 01/30/20 06:00 Pulse 86 01/30/20 06:00 Resp 17 01/30/20 06:00 BP 127/84 01/30/20 06:00 Pulse Ox 95 01/30/20 06:00 01/29/20 01/30/20 01/30/20 23:59 07:59 15:59 Intake Total 310 Output Total 300 Balance 10 Weight last 48 hrs Weight 172 lb Physical Exam Resp: COMMON NORMALS: normal respiratory effort EFFORT & INSPECTION: Yes symmetric chest movement AUSCULTATION: clear to auscultation bilaterally and diminished lung sounds Urinary Catheter Management^: Poole: Cath Placed During This Visit: yes, but has since been removed by the nurse Reason for Continuing Indwelling Catheter: Decision to DC Catheter Urinary Catheter Date of Insertion: 01/22/20 Date Urinary Catheter Removed: 01/25/20 Time Urinary Catheter Discontinued: 13:37 Data NPU : 01/27/20 04:20 01/27/20 04:20 A&P Assessment and plan (1) Wernicke encephalopathy: I believe this may have been staved off to some extent with thiamine. Status: Acute (2) Alcohol dependence with withdrawal: He has not required a great deal of medication from withdrawal lately. Status: Acute (3) Hypokalemia: Replacement is in order. Status: Acute Involuntary Hold Information 96 Hour Hold: 96 Hour Involuntary Admission: Yes 96 Hour Hold Start Date: 01/27/20 96 Hour Hold Start Time: 17:49 96 Hour Hold Ending Date: 02/02/20 96 Hour Hold Ending Time: 17:49 Attestations NPU Medical Necessity Statement*: Anticipate 5-10 midnights additional hospitalization. Time Spent in Patient Care: Greater than 35 minutes Adjustment of medicine; review of diagnostics; chest auscultation. 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
[2020-01-30] MEDS: amlodipine 5 mg Tablet 10 MG PO (09:04)
[2020-01-30] MEDS: multivitamin therapeutic Tablet 1 TAB PO (09:05)
[2020-01-30] MEDS: thiamine 100 mg Tablet PO (09:05)
[2020-01-30] MEDS: nicotine 21 mg Patch 1 PATCH TRANSDERMA (09:05)
[2020-01-30] MEDS: folic acid 1 mg Tablet PO (09:05)
[2020-01-30] MEDS: metoprolol tartrate 25 mg Tablet PO ×2 (09:05→17:29)
[2020-01-30] MEDS: gabapentin 300 mg Capsule PO ×2 (09:05→17:30)
[2020-01-30] MEDS: enoxaparin 40 mg/0.4 mL Syringe SUBCUT (09:06)
[2020-01-30 09:35] VITALS: PULSE 113; RESP 18; O2SAT 98
[2020-01-30] MEDS: pantoprazole DR 40 mg Tablet PO (09:40)
[2020-01-30 14:00] VITALS: BP 107/71; PULSE 96; RESP 18; TEMP 37
[2020-01-30 20:47] VITALS: BP 107/73; PULSE 95; RESP 18; TEMP 36.9; O2SAT 96
[2020-01-30] MEDS: trazodone 50 mg Tablet PO (21:10)
[2020-01-30] MEDS: OLANZapine 5 mg TABLET PO (21:10)
--- NOTE | 2020-01-30 21:52 | PC.NURSE ---
pt given scheduled zyprexa and vancomycin as well and prn trazodone per pt request.
[2020-01-30 22:26] VITALS: PULSE 102; RESP 18; O2SAT 96
[2020-01-31 06:00] VITALS: BP 145/94; PULSE 84; RESP 18; TEMP 37; O2SAT 99
[2020-01-31] MEDS: chlordiazePOXIDE 25 mg Capsule 50 MG PO (06:34)
[2020-01-31] MEDS: amlodipine 5 mg Tablet 10 MG PO (09:06)
[2020-01-31] MEDS: thiamine 100 mg Tablet PO (09:06)
[2020-01-31] MEDS: folic acid 1 mg Tablet PO (09:06)
[2020-01-31] MEDS: gabapentin 300 mg Capsule PO ×2 (09:06→17:22)
[2020-01-31] MEDS: metoprolol tartrate 25 mg Tablet PO ×2 (09:06→17:22)
[2020-01-31] MEDS: multivitamin therapeutic Tablet 1 TAB PO (09:06)
[2020-01-31] MEDS: pantoprazole DR 40 mg Tablet PO (09:06)
[2020-01-31] MEDS: nicotine 21 mg Patch 1 PATCH TRANSDERMA (09:07)
[2020-01-31] MEDS: enoxaparin 40 mg/0.4 mL Syringe SUBCUT (09:07)
[2020-01-31] MEDS: acetaminophen 325 mg Tablet 650 MG PO ×2 (09:08→22:07)
[2020-01-31 13:35] VITALS: BP 111/71; PULSE 77; RESP 18; TEMP 36.9; O2SAT 97
--- NOTE | 2020-01-31 16:23 | PM.NPN ---
Subjective NPU Subjective: Interval history: Patient has no active complaints other than his difficulty walking. He states that he intends to return home where he lives with his and grandchildren. We discussed his history and information provided was internally consistent and consistent with out of the chart. He denied suicidal and homicidal ideation. He made no requests regarding changes in medication. Medications: Medication Review Details: Current Medications Acetaminophen (Tylenol) 650 mg PO Q6H PRN PRN Reason: NEEDED FOR FEVER OR PAIN Last Admin: 01/28/20 21:56 Dose: 650 mg Documented by: Albuterol/Ipratropium (Duoneb) 3 ml INHALATION Q4H.RESPIRATORY PRN PRN Reason: sob Last Admin: 01/25/20 09:09 Dose: 3 ml Documented by: Amlodipine Besylate (Norvasc) 10 mg PO DAILY [facility] Last Admin: 01/29/20 08:51 Dose: 10 mg Documented by: Benztropine Mesylate (Cogentin) 1 mg PO BID PRN PRN Reason: Mild Extrapyramidal symptoms Camphor/Menthol/Phenol (Blistex) 1 applic TOPICAL Q1H PRN PRN Reason: DRYNESS Chlordiazepoxide (Librium) 50 mg PO Q12H [facility] Last Admin: 01/30/20 06:48 Dose: 50 mg Documented by: Dextrose (D50w) 25 ml IVP ONCE PRN; Protocol PRN Reason: hypoglycemia protocol Dextrose (D50w) 50 ml IVP PRN PRN; Protocol PRN Reason: hypoglycemia protocol Diphenhydramine HCl (Benadryl) 50 mg IM ONCE PRN PRN Reason: Severe Extrapyramidal Symptoms Diphenhydramine HCl (Benadryl) 50 mg IM Q4H PRN PRN Reason: Severe Aggression Enoxaparin Sodium (Lovenox) 40 mg SUBCUT DAILY [facility] Last Admin: 01/29/20 08:59 Dose: 40 mg Documented by: Famotidine (Pepcid Tab) 20 mg PO BID [facility] Last Admin: 01/29/20 21:54 Dose: Not Given Documented by: Folic Acid (Folic Acid) 1 mg PO DAILY [facility] Last Admin: 01/29/20 08:53 Dose: 1 mg Documented by: Gabapentin (Neurontin) 300 mg PO BID [facility] Last Admin: 01/29/20 18:31 Dose: 300 mg Documented by: Glucagon (Glucagen) 1 mg IM ONCE PRN; Protocol PRN Reason: Adult Acute Hypoglycemia Prot. Haloperidol (Haldol) 5 mg PO Q4H PRN PRN Reason: AGITATION Haloperidol Lactate (Haldol Inj) 2 mg IVP Q2H PRN PRN Reason: AGITATION Haloperidol Lactate (Haldol Inj) 5 mg IM Q4H PRN PRN Reason: Severe Aggression Hydralazine HCl (Apresoline) 10 mg IVP Q4H PRN PRN Reason: SBP>180 Last Admin: 01/27/20 13:30 Dose: 10 mg Documented by: Hydroxyzine Pamoate (Vistaril) 50 mg PO Q6H PRN PRN Reason: ANXIETY Dextrose (D5w) 500 mls @ 100 mls/hr IV ONCE PRN; Protocol PRN Reason: Adult Acute Hypoglycemia Prot Loperamide HCl (Imodium Capsule) 2 mg PO Q6H PRN PRN Reason: DIARRHEA Lorazepam (Ativan) 2 mg IM Q4H PRN PRN Reason: Severe Aggression Metoprolol Tartrate (Lopressor) 25 mg PO BID [facility] Last Admin: 01/29/20 18:30 Dose: 25 mg Documented by: Morphine Sulfate (Morphine) 2 mg IVP Q4H PRN PRN Reason: SEVERE PAIN Last Admin: 01/27/20 08:16 Dose: 2 mg Documented by: Multivitamins Therapeutic (Multivitamin Tab) 1 tab PO DAILY [facility] Last Admin: 01/29/20 08:51 Dose: 1 tab Documented by: Nicotine (Nicoderm 21 Mg Patch) 1 patch TRANSDERMA DAILY [facility] Last Admin: 01/29/20 08:53 Dose: 1 patch Documented by: Nicotine Polacrilex (Nicorette) 2 mg BUCCAL Q2H PRN PRN Reason: NICOTINE WITHDRAWAL Olanzapine (Zyprexa) 5 mg PO BEDTIME [facility] Ondansetron HCl (Zofran) 4 mg PO Q6H PRN PRN Reason: NAUSEA AND VOMITING Thiamine Mononitrate (Vitamin B-1) 100 mg PO DAILY [facility] Last Admin: 01/29/20 08:52 Dose: 100 mg Documented by: Trazodone HCl (Desyrel) 50 mg PO BEDTIME PRN PRN Reason: SLEEP Vancomycin HCl (Vancocin) 125 mg PO QID [facility] Stop: 02/03/20 00:00 Last Admin: 01/29/20 21:54 Dose: 125 mg Documented by: Mental Status Exam MSE Comments: The patient is oriented. He is reasonable answers to inquiry. Thought processes are slow but coherent. Speech is very soft but free of dysarthria, aprosody or pressure. Cognitive functions are clearly fragile and insight and judgment are fair. There is no bizarre conduct or agitation. Cognition: Patient Appearance: Appropriate Level of Consciousness: Awake, Alert, Appropriate and Follows Commands Patient Cognition Impaired: No Ability to Follow Directions: Fair Patient Orientation (long list): Person and Place Comprehension Ability: Mild Impairment Hallucination Type: None Delusion Description: Not Present Thought Process: Appropriate Affect: Affect Description: Appropriate Behavior: Patient Behavior: Appropriate and Cooperative Speech Pattern: Appropriate, Garbled and Mumbled Vitals/I&O/Wt Last Vital Signs Temp 98.4 F 01/31/20 13:35 Pulse 77 01/31/20 13:35 Resp 18 01/31/20 13:35 BP 111/71 01/31/20 13:35 Pulse Ox 97 01/31/20 13:35 Weight last 48 hrs Weight 78.018 kg Physical Exam Urinary Catheter Management^: Poole: Cath Placed During This Visit: yes, but has since been removed by the nurse Reason for Continuing Indwelling Catheter: Decision to DC Catheter Urinary Catheter Date of Insertion: 01/22/20 Date Urinary Catheter Removed: 01/25/20 Time Urinary Catheter Discontinued: 13:37 Data NPU : 01/27/20 04:20 01/27/20 04:20 A&P Assessment and plan (1) Wernicke encephalopathy: Diagnosis by history. This is my first meeting with this patient. Continue thiamine and folate. Status: Acute (2) Alcohol dependence with withdrawal: No signs of psychosis or agitation over the past 24 hours. Status: Acute (3) Hypokalemia: Replacement is in order. Status: Acute Additional A&P Information This is a 44 year old, white male, with alcohol use disorder, severe, currently in active withdrawal with agitation and denying a desire for ongoing treatment. Continue current medication. I would continue to taper the Librium as indicated. Continue with the Zyprexa qhs and give the Haldol as needed. If as he is medically able to come off of the Librium, he is having agitation that we believe is not predicated on his withdrawal, but related to some underlying psychiatric disorder, it would be appropriate to consider 96-hour hold. Clearly, he is medically compromised and is not in a position to make informed consent. We will continue to follow and see if there is a point where inpatient psychiatric care is needed. Based on the information from the collateral sources, he seems to be an appropriate candidate for inpatient rehab. Continue one to one. Involuntary Hold Information 96 Hour Hold: 96 Hour Involuntary Admission: Yes 96 Hour Hold Start Date: 01/27/20 96 Hour Hold Start Time: 17:49 96 Hour Hold Ending Date: 02/02/20 96 Hour Hold Ending Time: 17:49 Attestations NPU Medical Necessity Statement*: Patient will remain in the hospital another 2-4 nights for assessment of medication efficacy and tolerability. Coding Level of Care Code Acute [employer] for [employer] [facility] Diagnoses Wernicke encephalopathy E51.2 Alcohol dependence with withdrawal F10.239 Hypokalemia E87.6
[2020-01-31] MEDS: chlordiazePOXIDE 25 mg Capsule PO (17:23)
[2020-01-31 21:22] VITALS: BP 124/85; PULSE 18; RESP 86; TEMP 36.9; O2SAT 97
[2020-01-31] MEDS: trazodone 50 mg Tablet PO (22:01)
[2020-01-31] MEDS: OLANZapine 5 mg TABLET PO (22:02)
[2020-02-01 06:00] VITALS: BP 121/75; PULSE 77; RESP 16; TEMP 37.1; O2SAT 90
[2020-02-01] MEDS: acetaminophen 325 mg Tablet 650 MG PO ×3 (06:22→19:30)
[2020-02-01] MEDS: chlordiazePOXIDE 25 mg Capsule PO ×2 (06:22→17:34)
[2020-02-01 07:59] LABS: Blood Urea Nitrogen 4 mg/dL (6-20); Carbon Dioxide 25 mmol/L (22-29); Chloride 104 mmol/L (98-107); Glomerular Filtration Rate 146.4 mL/min (90-130); Glucose 91 mg/dL (65-115); Osmolality Calculated 285 mOsm/kg (285-295); Sodium 140 mmol/L (136-145)
[2020-02-01] MEDS: nicotine 21 mg Patch 1 PATCH TRANSDERMA (08:59)
[2020-02-01] MEDS: thiamine 100 mg Tablet PO (09:36)
[2020-02-01] MEDS: pantoprazole DR 40 mg Tablet PO (09:36)
[2020-02-01] MEDS: multivitamin therapeutic Tablet 1 TAB PO (09:36)
[2020-02-01] MEDS: metoprolol tartrate 25 mg Tablet PO ×2 (09:36→17:34)
[2020-02-01] MEDS: folic acid 1 mg Tablet PO (09:36)
[2020-02-01] MEDS: gabapentin 300 mg Capsule PO ×2 (09:37→17:34)
[2020-02-01] MEDS: amlodipine 5 mg Tablet 10 MG PO (09:37)
--- NOTE | 2020-02-01 11:20 | PM.NPN ---
Subjective NPU Subjective: Interval history: Patient's only complaint is excessive somnolence during the day. Medications: Medication Review Details: Current Medications Acetaminophen (Tylenol) 650 mg PO Q6H PRN PRN Reason: NEEDED FOR FEVER OR PAIN Last Admin: 01/28/20 21:56 Dose: 650 mg Documented by: Albuterol/Ipratropium (Duoneb) 3 ml INHALATION Q4H.RESPIRATORY PRN PRN Reason: sob Last Admin: 01/25/20 09:09 Dose: 3 ml Documented by: Amlodipine Besylate (Norvasc) 10 mg PO DAILY [facility] Last Admin: 01/29/20 08:51 Dose: 10 mg Documented by: Benztropine Mesylate (Cogentin) 1 mg PO BID PRN PRN Reason: Mild Extrapyramidal symptoms Camphor/Menthol/Phenol (Blistex) 1 applic TOPICAL Q1H PRN PRN Reason: DRYNESS Chlordiazepoxide (Librium) 50 mg PO Q12H [facility] Last Admin: 01/30/20 06:48 Dose: 50 mg Documented by: Dextrose (D50w) 25 ml IVP ONCE PRN; Protocol PRN Reason: hypoglycemia protocol Dextrose (D50w) 50 ml IVP PRN PRN; Protocol PRN Reason: hypoglycemia protocol Diphenhydramine HCl (Benadryl) 50 mg IM ONCE PRN PRN Reason: Severe Extrapyramidal Symptoms Diphenhydramine HCl (Benadryl) 50 mg IM Q4H PRN PRN Reason: Severe Aggression Enoxaparin Sodium (Lovenox) 40 mg SUBCUT DAILY [facility] Last Admin: 01/29/20 08:59 Dose: 40 mg Documented by: Famotidine (Pepcid Tab) 20 mg PO BID [facility] Last Admin: 01/29/20 21:54 Dose: Not Given Documented by: Folic Acid (Folic Acid) 1 mg PO DAILY [facility] Last Admin: 01/29/20 08:53 Dose: 1 mg Documented by: Gabapentin (Neurontin) 300 mg PO BID [facility] Last Admin: 01/29/20 18:31 Dose: 300 mg Documented by: Glucagon (Glucagen) 1 mg IM ONCE PRN; Protocol PRN Reason: Adult Acute Hypoglycemia Prot. Haloperidol (Haldol) 5 mg PO Q4H PRN PRN Reason: AGITATION Haloperidol Lactate (Haldol Inj) 2 mg IVP Q2H PRN PRN Reason: AGITATION Haloperidol Lactate (Haldol Inj) 5 mg IM Q4H PRN PRN Reason: Severe Aggression Hydralazine HCl (Apresoline) 10 mg IVP Q4H PRN PRN Reason: SBP>180 Last Admin: 01/27/20 13:30 Dose: 10 mg Documented by: Hydroxyzine Pamoate (Vistaril) 50 mg PO Q6H PRN PRN Reason: ANXIETY Dextrose (D5w) 500 mls @ 100 mls/hr IV ONCE PRN; Protocol PRN Reason: Adult Acute Hypoglycemia Prot Loperamide HCl (Imodium Capsule) 2 mg PO Q6H PRN PRN Reason: DIARRHEA Lorazepam (Ativan) 2 mg IM Q4H PRN PRN Reason: Severe Aggression Metoprolol Tartrate (Lopressor) 25 mg PO BID [facility] Last Admin: 01/29/20 18:30 Dose: 25 mg Documented by: Morphine Sulfate (Morphine) 2 mg IVP Q4H PRN PRN Reason: SEVERE PAIN Last Admin: 01/27/20 08:16 Dose: 2 mg Documented by: Multivitamins Therapeutic (Multivitamin Tab) 1 tab PO DAILY [facility] Last Admin: 01/29/20 08:51 Dose: 1 tab Documented by: Nicotine (Nicoderm 21 Mg Patch) 1 patch TRANSDERMA DAILY [facility] Last Admin: 01/29/20 08:53 Dose: 1 patch Documented by: Nicotine Polacrilex (Nicorette) 2 mg BUCCAL Q2H PRN PRN Reason: NICOTINE WITHDRAWAL Olanzapine (Zyprexa) 5 mg PO BEDTIME [facility] Ondansetron HCl (Zofran) 4 mg PO Q6H PRN PRN Reason: NAUSEA AND VOMITING Thiamine Mononitrate (Vitamin B-1) 100 mg PO DAILY [facility] Last Admin: 01/29/20 08:52 Dose: 100 mg Documented by: Trazodone HCl (Desyrel) 50 mg PO BEDTIME PRN PRN Reason: SLEEP Vancomycin HCl (Vancocin) 125 mg PO QID [facility] Stop: 02/03/20 00:00 Last Admin: 01/29/20 21:54 Dose: 125 mg Documented by: Mental Status Exam MSE Comments: Mental Status Exam: Appearance: hygiene is good; no gross neurological deficits., AIMS=0 Speech: Speech is of normal rate and rhythm and easily understood. Thought processes: Thought processes are abstract. Judgment is adequate for safety. Associations: intact Psychotic processes: There is no indication of guarding or paranoia. There is no attention to the internal stimuli. Auditory and visual hallucinations are denied. Judgment: Insight is fair. Problem solving skills are adequate for safety. Orientation: The patient is oriented to person, place time and situation. Memory: no deficits noted in immediate, intermediate, or remote spheres. Attention: The patient is alert and interpersonally engaged. Language: Verbalizations are coherent. Fund of knowledge: Fund of knowledge is adequate. Affect/Mood: Affect is consistent with a euthymic mood. denied suicidal ideation Affective range is appropriate. Psychosis: perception unimpaired except through cognitive distortion; reality testing intact. Cognition: Patient Appearance: Appropriate Level of Consciousness: Awake, Alert, Appropriate and Follows Commands Patient Cognition Impaired: No Ability to Follow Directions: Fair Patient Orientation (long list): Person and Place Comprehension Ability: Mild Impairment Hallucination Type: None Delusion Description: Not Present Thought Process: Appropriate Affect: Affect Description: Appropriate Behavior: Patient Behavior: Appropriate Speech Pattern: Clear Vitals/I&O/Wt Last Vital Signs Temp 98.6 F 02/02/20 06:00 Pulse 80 02/02/20 06:00 Resp 15 02/02/20 06:00 BP 158/104 02/02/20 06:00 Pulse Ox 95 02/02/20 06:00 Physical Exam Urinary Catheter Management^: Poole: Cath Placed During This Visit: yes, but has since been removed by the nurse Reason for Continuing Indwelling Catheter: Decision to DC Catheter Urinary Catheter Date of Insertion: 01/22/20 Date Urinary Catheter Removed: 01/25/20 Time Urinary Catheter Discontinued: 13:37 Data NPU : 01/27/20 04:20 02/01/20 07:32 A&P Assessment and plan (1) Wernicke encephalopathy: Diagnosis by history. This is my first meeting with this patient. Continue thiamine and folate. Status: Acute (2) Alcohol dependence with withdrawal: No signs of psychosis or agitation over the past 24 hours. Status: Acute (3) Hypokalemia: Replacement is in order. Status: Acute Additional A&P Information This is a 44 year old, white male, with alcohol use disorder, severe, currently in active withdrawal with agitation and denying a desire for ongoing treatment. Reduce Librium as toelrated Involuntary Hold Information 96 Hour Hold: 96 Hour Involuntary Admission: Yes 96 Hour Hold Start Date: 01/27/20 96 Hour Hold Start Time: 17:49 96 Hour Hold Ending Date: 02/02/20 96 Hour Hold Ending Time: 17:49 Attestations NPU Medical Necessity Statement*: pt to rem,ain one more day for completion of commitment. 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 Fwd Diagnoses Wernicke encephalopathy E51.2 Alcohol dependence with withdrawal F10.239 Hypokalemia E87.6
[2020-02-01 12:40] LABS: Vitamin B1(Thiamin) Plas/Ser 36 nmol/L (8-30)
[2020-02-01 14:00] VITALS: BP 120/82; PULSE 84; RESP 20; TEMP 36.3; O2SAT 96
[2020-02-01 20:58] VITALS: BP 128/89; PULSE 90; RESP 17; TEMP 36.9; O2SAT 100
[2020-02-01] MEDS: OLANZapine 5 mg TABLET PO (21:16)
[2020-02-01 21:45] VITALS: PULSE 88; RESP 18; O2SAT 97
[2020-02-02] MEDS: chlordiazePOXIDE 25 mg Capsule PO (05:18)
[2020-02-02] MEDS: hyDROXYzine 25 mg Capsule 50 MG PO (05:20)
--- NOTE | 2020-02-02 05:21 | PC.NURSE ---
PRN VISTARIL PT UP AT NURSES STATION W/INCREASING ANXIETY. BP 158/104. VISTARIL 50 MG PO ADMINISTERED. WILL MONITOR FOR MEDICATION EFFECTIVENESS.
[2020-02-02 06:00] VITALS: BP 158/104; PULSE 80; RESP 15; TEMP 37; O2SAT 95
[2020-02-02] MEDS: gabapentin 300 mg Capsule PO (09:16)
[2020-02-02] MEDS: amlodipine 5 mg Tablet 10 MG PO (09:17)
[2020-02-02] MEDS: multivitamin therapeutic Tablet 1 TAB PO (09:17)
[2020-02-02] MEDS: thiamine 100 mg Tablet PO (09:17)
[2020-02-02] MEDS: pantoprazole DR 40 mg Tablet PO (09:17)
[2020-02-02] MEDS: folic acid 1 mg Tablet PO (09:17)
[2020-02-02] MEDS: metoprolol tartrate 25 mg Tablet PO (09:17)
[2020-02-02] MEDS: nicotine 21 mg Patch 1 PATCH TRANSDERMA (09:46)
--- NOTE | 2020-02-02 11:13 | PM.NDC ---
Diagnoses at Discharge Discharge Diagnosis (1) Wernicke encephalopathy: Status: Acute (2) Alcohol dependence with withdrawal: Status: Acute Problem details: Recovery program is essential. (3) Hypokalemia: Status: Acute Reason for Visit Reason for Visit: legs stopped working Hospital Course Hospital Course H&P on admission:Sherif Rangel is a 44 year old male with no significant past medical history brought in by EMS for chief complaint of coarse tremors. Patient lives with his family, his called EMS because of his extreme coarse tremors. Patient is stating that he drinks 30 beers every day, smokes 2 packs/day, his last drink was yesterday, he has recently cut down his beer intake to 15 cans a day. He is endorsing alcohol withdrawal in the past as well without requiring intubation. Is denying any [place], stroke, heart failure, diabetes or hypertension history. Patient is a poor historian. Diagnostics in the ER revealed hyponatremia, hypokalemia, I requested CT head after noticing right-sided mouth deviation, CT head did not show any acute pathological process Lactic acid is pending He has received 6 mg of Ativan in the ER H&P on psychiatric consutltation: Sherif Rangel is a 44 year old male Sherif who to the emergency room, with alcohol withdrawal. He reported to the emergency room team that he was drinking about thirty beers a day, and that he had been trying to cut back. He recently had been averaging ten or less beers a day, trying to stay in the seven to ten range. He started having withdrawal symptoms with multiple bouts of emesis, and only had about four beers when he came in on 01-17. The patient was admitted to the ICU where his withdrawal worsened. A consult for psychiatry was placed secondary to continued agitation as he is withdrawing from the alcohol. Today, he presents as a limited historian, he is clearly out of it. He is able to communicate his wishes, but is unable to really articulate historical data, pretty much mumbling, but in a way that it is perceivable what his desire is. He has struggled with both the withdrawal and C-difficile. 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 Otherwise, he identified that he knew he was there because of his alcohol withdrawal and when asked what he wanted to do to further manage the situation, he said he wanted to go home. I further illustrated my concern about him going home, based on his appearance, the fact that he had been in ICU for several days, and that he had not figured out how to manage his addiction at home prior. We discussed the fact that most people benefit most by engaging in some kind of ongoing treatment as a way to prevent this outcome. He continued to mumble more vehemently and aggressively, ?I want to go home?. Otherwise he was again a limited historian and still somewhat out of it. The patient is safe for now but he still has no insight or judgment and thinks he should leave, which would likely be disastrous for him. The patient was admitted to the intensive care unit and then transferred to a medical unit Due to the problems listed above. On hospital day #9, psychiatry service was engaged and Dr. Handy performed his initial consultation. He was followed by the psychiatry service And followed by the psychiatry service until transferred to the psychiatric unit until hospital day #11. He was entered into the full array of individual and group therapies as part of the adult psychiatric unit protocol. He continued to have hospitalist supervision though he did well medically. He had been placed on a 96-hour involuntary commitment. By the time of the completion of that commitment, he was no longer an imminent risk to self or others. Involuntary Hold Information 96 Hour Hold: 96 Hour Involuntary Admission: Yes 96 Hour Hold Start Date: 04/20 96 Hour Hold Start Time: 17:49 96 Hour Hold Ending Date: 02/02/20 96 Hour Hold Ending Time: 17:49 Mental Status Exam MSE Comments: Discharge Mental Status Exam: Appearance: hygiene is good; no gross neurological deficits., AIMS=0 Speech: Speech is of normal rate and rhythm and easily understood. Thought processes: Thought processes are abstract. Judgment is adequate for safety. Associations: intact Psychotic processes: There is no indication of guarding or paranoia. There is no attention to the internal stimuli. Auditory and visual hallucinations are denied. Judgment: Insight is fair. Problem solving skills are adequate for safety. Orientation: The patient is oriented to person, place time and situation. Memory: no deficits noted in immediate, intermediate, or remote spheres. Attention: The patient is alert and interpersonally engaged. Language: Verbalizations are coherent. Fund of knowledge: Fund of knowledge is adequate. Affect/Mood: Affect is consistent with a euthymic mood. denied suicidal ideation Affective range is appropriate. Psychosis: perception unimpaired except through cognitive distortion; reality testing intact. Cognition: Patient Appearance: Appropriate Level of Consciousness: Awake, Alert, Appropriate and Follows Commands Patient Cognition Impaired: No Delusion Description: Not Present Thought Process: Appropriate Affect: Affect Description: Appropriate Behavior: Patient Behavior: Appropriate Speech Pattern: Clear Physical Exam Urinary Catheter Management^: Poole: Cath Placed During This Visit: yes, but has since been removed by the nurse Reason for Continuing Indwelling Catheter: Decision to DC Catheter Urinary Catheter Date of Insertion: 01/22/20 Date Urinary Catheter Removed: 01/25/20 Time Urinary Catheter Discontinued: 13:37 Discharge Data Data Completed and Pending: Completed Studies During Hospitalization Category Date Time Status CT abdomen pelvis wo con [id number] Stat Cat Scan 01/21/20 09:[address] head wo con* 7 0450 Routine Cat Scan 01/18/20 20:23 Completed XR KUB portable 7 [id number] Routine Exams 01/20/20 16:04 Completed XR chest 1V netta ble [id number] Routine Exams 01/20/20 07:37 Completed XR chest 1V netta ble [id number] Routine Exams 01/23/20 07:00 Completed XR chest 1V netta ble [id number] Stat Exams 01/21/20 22:47 Completed US abdomen limite d [id number] Routine Ultrasound 01/21/20 15:58 Completed Labs from last 24 hours 01/26/20 14:55 Vitamin B1 36 H Vitals: Last Vital Signs Temp 98.6 F 02/02/20 06:00 Pulse 80 02/02/20 06:00 Resp 15 02/02/20 06:00 BP 158/104 02/02/20 06:00 Pulse Ox 95 02/02/20 06:00 Discharge Plan Discharge Patient Disposition: Home, Self-Care Condition: Stable Prescriptions: New olanzapine 5 mg Tablet 5 mg PO BEDTIME Qty: 30 RF: 0 amlodipine 5 mg Tablet 10 mg PO DAILY Qty: 30 RF: 2 pantoprazole 40 mg Tablet,Delayed Release (Dr/Ec) 40 mg PO DAILY Qty: 30 RF: 3 gabapentin 300 mg Capsule 300 mg PO BID Qty: 60 RF: 2 folic acid 1 mg Tablet 1 mg PO DAILY Qty: 30 RF: 0 metoprolol tartrate 25 mg Tablet 25 mg PO BID Qty: 60 RF: 3 Vitamin B-1 (mononitrate) 100 mg Tablet 100 mg PO DAILY Qty: 30 RF: 0 Thera 400 mcg Tablet 1 tab PO DAILY Qty: 30 RF: 3 chlordiazepoxide HCl 10 mg capsule 10 mg PO Q12H PRN (Reason: anxiety) 15 Days Qty: 30 RF: 0 Discontinued acetaminophen [Tylenol] 325 mg Tablet 325 mg PO QID PRN (Reason: Pain) RF: 0 Discharge Orders: Discharge Order (Routine); Ordered 02/02/20 Ordered By: Jaime Carrion [place] [facility] [place] [facility] [place] - 4-7 days [facility] [Outside] (Resource for substance abuse treatment. 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
== END 2020-02-02 12:15 | disposition home or self-care (01) | DRG 896 ==
LOC: ER 17:03 → ICU 20:16 → NP 01-27 18:22
PROVIDERS: Emergency Medicine; Family Medicine; Nurse Practitioner Family; Physician Assistant; Psychiatry & Neurology Psychiatry; Admitting Provider Internal Medicine; Visit Provider Student in an Organized Health Care Education/Training Program
DX: F10.229 Alcohol dependence with intoxication, unspecified (principal); J69.0 Pneumonitis due to inhalation of food and vomit; E87.1 Hypo-osmolality and hyponatremia; E51.2 Wernicke's encephalopathy; A04.72 Enterocolitis due to Clostridium difficile, not specified as recurrent; F10.239 Alcohol dependence with withdrawal, unspecified; E87.6 Hypokalemia; F17.210 Nicotine dependence, cigarettes, uncomplicated; R00.0 Tachycardia, unspecified; I16.0 Hypertensive urgency; D69.59 Other secondary thrombocytopenia; I10 Essential (primary) hypertension; I95.9 Hypotension, unspecified
CPT/HCPCS: 12345; 36415; 36416; 36600; 51702; 70450; 71045; 74018; 74176; 76705; 80048; 80053; 80307; 82140; 82803; 82962; 83605; 83735; 84100; 84145; 85025; 85610; 86140; 86705; 86706; 86709; 86803; 87340; 87493; 87806; 94002; 94003; 94640; 94799; 96372; 96375; 97110; 97116; 97161; 97530; 99282; C9113; J0330; J0360; J0743; J1630; J1650; J2001; J2060; J2250; J2270; J2405; J2704; J3370; J3411; J3475; J3480; J3490; J7030; J7050

== ENCOUNTER → 2020-03-23 10:56 | Outpatient (BNVA) | payer MEDICAID, SELFPAY | PROVIDERS: PCP Family Medicine; Visit Provider Nurse Practitioner | DX: I10 Essential (primary) hypertension (principal); F10.11 Alcohol abuse, in remission; M54.9 Dorsalgia, unspecified; G89.29 Other chronic pain; R00.2 Palpitations; G47.00 Insomnia, unspecified | CPT/HCPCS: 80053; 80061; 81000; 83721; 84443; 85025 ==

== ENCOUNTER → 2020-04-05 09:04 | Outpatient (BNVA) | payer MEDICAID, SELFPAY | PROVIDERS: PCP Family Medicine; Visit Provider Nurse Practitioner | DX: G89.29 Other chronic pain (principal); M54.9 Dorsalgia, unspecified | CPT/HCPCS: 72072; 72100 ==

== ENCOUNTER 2020-06-07 06:00 | Outpatient (RCR) | payer MEDICAID, SELFPAY | END 2020-06-24 23:59 | disposition home or self-care (01) | LOC: APT 06:00 | PROVIDERS: PCP Nurse Practitioner; Referring Provider Nurse Practitioner; Visit Provider Nurse Practitioner | DX: M54.89 Other dorsalgia (principal); G89.29 Other chronic pain | CPT/HCPCS: 97110; 97161 ==

== ENCOUNTER → 2020-06-20 10:12 | Outpatient (BNVA) | payer MEDICAID, SELFPAY | PROVIDERS: PCP Nurse Practitioner; Visit Provider Nurse Practitioner | DX: I10 Essential (primary) hypertension (principal); F10.11 Alcohol abuse, in remission; E78.2 Mixed hyperlipidemia; M54.9 Dorsalgia, unspecified; G89.29 Other chronic pain; R00.2 Palpitations; Z23 Encounter for immunization | CPT/HCPCS: 80053; 80061; 83721 ==

== ENCOUNTER 2020-06-25 06:00 | Outpatient (RCR) | payer MEDICAID, SELFPAY | END 2020-07-24 23:59 | disposition home or self-care (01) | LOC: APT 06:00 | PROVIDERS: PCP Nurse Practitioner; Referring Provider Nurse Practitioner; Visit Provider Nurse Practitioner | DX: M54.89 Other dorsalgia (principal); G89.29 Other chronic pain | CPT/HCPCS: 97110 ==

== ENCOUNTER 2020-07-25 06:00 | Outpatient (RCR) | payer MEDICAID, SELFPAY | END 2020-08-24 23:59 | disposition home or self-care (01) | LOC: APT 06:00 | PROVIDERS: PCP Nurse Practitioner; Referring Provider Nurse Practitioner; Visit Provider Nurse Practitioner | DX: M54.9 Dorsalgia, unspecified (principal); G89.29 Other chronic pain | CPT/HCPCS: 97110 ==

== ENCOUNTER → 2021-05-16 14:14 | Outpatient (BNVA) | payer MEDICAID, SELFPAY | PROVIDERS: PCP Nurse Practitioner; Visit Provider Nurse Practitioner | DX: F10.11 Alcohol abuse, in remission (principal); I10 Essential (primary) hypertension; R00.2 Palpitations; M54.9 Dorsalgia, unspecified; G89.29 Other chronic pain; E78.2 Mixed hyperlipidemia | CPT/HCPCS: 80053; 80061; 83721 ==